=== PATIENT | male | born 1930 | race Caucasian/White ===

== ENCOUNTER 2017-04-09 17:28 | Inpatient (IN) | payer MEDICARE, OTHER ==
[2017-04-09 17:28] VITALS: BMI 25.2
[2017-04-09] MEDS ORDERED: Sodium Chloride 0.9% 1,000 ML IV STA (18:27)
--- NOTE | 2017-04-09 18:47 | ED PDOC ---
HPI: General Adult Time Seen by Provider: 04/09/17 18:04 Chief Complaint (Nursing): Weakness/Neurological Deficit Chief Complaint (Provider): Generalized Weakness and Abnormal Lab Results History Per: Patient, Family History/Exam Limitations: no limitations Onset/Duration Of Symptoms: Hrs Additional Complaint(s): Patient is an 86 y/o male with extensive past medical history, who presents to the ED with family for generalized weakness and abnormal lab results (per family ). Family states that patient is living at home and was about to be admitted to a custodial, when the patient's innersole fitter called today and said that he has high potassium levels from blood-work take days ago. They also state he advised taking the patient to the ED to have blood-work done again, before deciding whether or not to take him to the custodial. Family reports the patient has been eating less than usual and deny any fever, cough, urinary symptoms, vomiting, diarrhea, or chest pain. PCP: Charlene Burgos Past Medical History Reviewed: Historical Data, Nursing Documentation, Vital Signs Vital Signs: Last Vital Signs Temp 98.8 F 04/09/17 17:58 Pulse 60 04/09/17 17:58 Resp 16 04/09/17 17:58 BP 140/58 L 04/09/17 17:58 Pulse Ox 100 04/09/17 19:00 - Medical History PMH: Arthritis, CVA (with R deficits), Dementia, HTN, Hypercholesterolemia, TIA Denies: HIV Other PMH: Peripheral artery disease, prostate enlargement - Surgical History Surgical History: Cholecystectomy Other surgeries: Peripheral arterial revascularization of lower extremity, Prostatectomy - Family History Family History: States: Unknown Family Hx - Living Arrangements Living Arrangements: With Family - Home Medications Home Medications: Ambulatory Orders Medication Instructions Recorded Carvedilol [Coreg] 6.25 mg PO DAILY 04/09/17 Clonazepam [Klonopin] 1 mg PO HS 04/09/17 Clopidogrel [Plavix] 75 mg PO DAILY 04/09/17 Furosemide [Lasix] 40 mg PO DAILY 04/09/17 Valsartan [Diovan] 320 mg PO DAILY 04/09/17 - Allergies Allergies/Adverse Reactions: Allergies Allergy/AdvReac Type Severity Reaction Status Date / Time No Known Allergies Allergy Verified 04/09/17 17:58 Review of Systems ROS Statement: Except As Marked, All Systems Reviewed And Found Negative Constitutional: Positive for: Weakness (progessive). Negative for: Fever, Chills Respiratory: Negative for: Cough, Shortness of Breath Gastrointestinal: Negative for: Nausea, Vomiting, Diarrhea Neurological: Positive for: Change in Speech (intermittently slurred speech) Physical Exam - Reviewed Nursing Documentation Reviewed: Yes Vital Signs Reviewed: Yes - Physical Exam Appears: Positive for: No Acute Distress Head Exam: Positive for: ATRAUMATIC, NORMOCEPHALIC Skin: Positive for: Normal Color, Warm, Dry Eye Exam: Positive for: Normal appearance, EOMI, PERRL, Other (Sclera normal) ENT: Positive for: Other (Mucosa dry) Neck: Positive for: Normal, Painless ROM, Supple Cardiovascular/Chest: Positive for: Regular Rate, Rhythm. Negative for: Murmur Respiratory: Positive for: Normal Breath Sounds. Negative for: Respiratory Distress Gastrointestinal/Abdominal: Positive for: Normal Exam, Soft. Negative for: Tenderness Back: Positive for: Normal Inspection. Negative for: L CVA Tenderness, R CVA Tenderness, Vertebral Tenderness Rectal: Positive for: Normal Exam (brown pasty stool). Negative for: Tenderness Extremity: Positive for: Swelling (Bilateral lower extremity), Other (2 heal ulcers) Neurologic/Psych: Positive for: Alert, Oriented (person, place, and time). Negative for: Motor/Sensory Deficits - Laboratory Results Result Diagrams: 04/09/17 19:04 04/09/17 19:04 - ECG O2 Sat by Pulse Oximetry: 100 (RA) Pulse Ox Interpretation: Normal Medical Decision Making Medical Decision Makin:24 Initial Impression: Generalized weakness, possible abnormal lab results Initial Plan: --EKG --CMP --Dipstick --CBC --Partial Thromboplastin Time --Prothrombin Time --Sodium Chloride 0.9% IV 125 mls/hr --IV Insertion --Glucose, Blood, POC Scribe Attestation: Documented by Annabel Moss, acting as a scribe for Taryn Vidales MD Provider Scribe Attestation: All medical record entries made by the James were at my direction and personally dictated by me. I have reviewed the chart and agree that the record accurately reflects my personal performance of the history, physical exam, medical decision making, and the department course for this patient. I have also personally directed, reviewed, and agree with the discharge instructions and disposition. Disposition - Clinical Impression Clinical Impression: Anemia, Acute renal disease, Hyperkalemia - Patient ED Disposition Is Patient to be Admitted: Transfer of Care Doctor Will See Patient In The: Hospital - Disposition Disposition Time: 21:00 Condition: STABLE Forms: [employer] (Bulgarian) - Pt Status Changed To: Hospital Disposition Of: Inpatient - Admit Certification Admit to Inpatient:: After my assessment, the patient will require hospitalization for at least two midnights. This is because of the severity of symptoms shown, intensity of services needed, and/or the medical risk in this patient being treated as an outpatient. - POA Present On Arrival: None, Pressure Ulcer (stage 1 sacral; bilateral heel eschar)
[2017-04-09 19:29] LABS: BASO % 0.9 % (0.0-2.0); EOS # 0.4 K/uL (0.0-0.7); EOS % 6.9 % (0.0-4.0); HEMOGLOBIN 7.7 g/dL (12.0-18.0); LYMPH # 1.3 K/uL (1.0-4.3); LYMPH % 25.3 % (20.0-40.0); MEAN CELL VOLUME 89.7 fl (80.0-94.0); MEAN CORPUSCULAR HEMOGLOBIN 29.3 pg (27.0-31.0); MEAN CORPUSCULAR HGB CONC 32.6 g/dL (33.0-37.0); MEAN PLATELET VOLUME 9.1 fl (7.2-11.7); MONO # 0.7 K/uL (0.0-0.8); MONO % 12.9 % (0.0-10.0); NEUT # 2.8 K/uL (1.8-7.0); RBC 2.63 Mil/uL (4.40-5.90); RED CELL DISTRIBUTION WIDTH 15.6 % (11.5-14.5); WHITE BLOOD COUNT 5.2 K/uL (4.8-10.8)
[2017-04-09 19:33] LABS: PARTIAL THROMBOPLASTIN TIME 26.3 Seconds (25.6-37.1); PROTHROMBIN TIME 10.8 Seconds (9.8-13.1)
[2017-04-09 19:45] LABS: ALBUMIN 3.9 g/dL (3.5-5.0); CALCIUM 8.9 mg/dL (8.4-10.2)
--- NOTE | 2017-04-10 11:44 | CARD ---
APPROVED REPORT EKG Measurement Heart [id number] <Conclusion> Sinus bradycardia with 1st degree AV block Left ventricular hypertrophy with repolarization abnormality Abnormal ECG
[2017-04-10 14:43] LABS: MEAN CELL VOLUME 88.1 fl (80.0-94.0); RBC 3.01 Mil/uL (4.40-5.90); RED CELL DISTRIBUTION WIDTH 14.7 % (11.5-14.5); WHITE BLOOD COUNT 4.9 K/uL (4.8-10.8)
[2017-04-10 17:04] LABS: CALCIUM 8.4 mg/dL (8.4-10.2)
--- NOTE | 2017-04-10 22:50 | CP.PCM.HP ---
History of Present Illness - History of Present Illness History of Present Illness: CC: Abnormal Laboratory History of Present Illness: An 86 y/o male with extensive past medical history, who presents to the ED with family for generalized weakness and abnormal lab results per the daughter at the bed side. Family states that patient is living at home and was about to be admitted to a senior care, when the patient's bilingual operator called today and said that he has high potassium levels from blood-work taken days ago. They also state he advised taking the patient to the ED to have blood-work done again , before deciding whether or not to take him to the senior care. Family reports the patient has been eating less than usual and deny any fever, cough, urinary symptoms, vomiting, diarrhea, or chest pain. Present on Admission - Present on Admission Any Indicators Present on Admission: No History of DVT/PE: No History of Uncontrolled Diabetes: No Urinary Catheter: No Decubitus Ulcer Present: No Review of Systems - Review of Systems All systems: reviewed and no additional remarkable complaints except Past Patient History - Past Medical History & Family History Past Medical History?: Yes Past Family History: Reviewed and not pertinent - Past Social History Smoking Status: Former Smoker Alcohol: None Drugs: Denies - CARDIAC Hx Cardiac Disorders: Yes Hx Hypercholesterolemia: Yes Hx Hypertension: Yes Other/Comment: peripheral artery disease - PULMONARY Hx Respiratory Disorders: No - NEUROLOGICAL Hx Neurological Disorder: Yes HX Cerebrovascular Accident: Yes (slight right weakness) Hx Dementia: Yes Hx Transient Ischemic Attacks (TIA): Yes - HEENT Hx HEENT Problems: No - RENAL Hx Chronic Kidney Disease: No - ENDOCRINE/METABOLIC Hx Endocrine Disorders: No - HEMATOLOGICAL/ONCOLOGICAL Hx Blood Disorders: No Hx Human Immunodeficiency Virus (HIV): No - INTEGUMENTARY Hx Dermatological Problems: No - MUSCULOSKELETAL/RHEUMATOLOGICAL Hx Musculoskeletal Disorders: Yes Hx Arthritis: Yes Hx Falls: No - GASTROINTESTINAL Hx Gastrointestinal Disorders: No - GENITOURINARY/GYNECOLOGICAL Hx Genitourinary Disorders: Yes Hx Prostate Problems: Yes (enlargement) - PSYCHIATRIC Hx Psychophysiologic Disorder: No Hx Substance Use: No - SURGICAL HISTORY Hx Surgeries: Yes Hx Cholecystectomy: Yes Hx Herniorrhaphy: Yes (hernia repair) Other/Comment: prostatectomy, peripheral arterial revascularization of lower extremities - ANESTHESIA Hx Anesthesia: Yes Hx Anesthesia Reactions: No Hx Malignant Hyperthermia: No Meds Allergies/Adverse Reactions: Allergies Allergy/AdvReac Type Severity Reaction Status Date / Time No Known Allergies Allergy Verified 04/09/17 17:58 Physical Exam - Constitutional Appears: Well - Head Exam Head Exam: ATRAUMATIC, NORMAL INSPECTION, NORMOCEPHALIC - Eye Exam Eye Exam: EOMI, Normal appearance, PERRL Pupil Exam: NORMAL ACCOMODATION, PERRL - ENT Exam ENT Exam: Mucous Membranes Moist, Normal Exam - Neck Exam Neck exam: Positive for: Normal Inspection - Respiratory Exam Respiratory Exam: Clear to Auscultation Bilateral, NORMAL BREATHING PATTERN - Cardiovascular Exam Cardiovascular Exam: REGULAR RHYTHM, +S1, +S2 - GI/Abdominal Exam GI & Abdominal Exam: Normal Bowel Sounds, Soft. absent: Tenderness - Extremities Exam Extremities exam: Positive for: normal inspection - Back Exam Back exam: FULL ROM, NORMAL INSPECTION - Neurological Exam Neurological exam: Alert, CN II-XII Intact, Normal Gait, Oriented x3, Reflexes Normal - Psychiatric Exam Psychiatric exam: Normal Affect, Normal Mood - Skin Skin Exam: Dry, Intact, Normal Color, Warm Results - Vital Signs Recent Vital Signs: Last Vital Signs Temp 98.4 F 04/10/17 19:25 Pulse 60 04/10/17 21:00 Resp 17 04/10/17 19:25 BP 167/58 H 04/10/17 21:00 Pulse Ox 96 04/10/17 19:25 - Labs Result Diagrams: 04/14/17 13:10 04/14/17 13:10 Labs: Laboratory Results - last 24 hr 04/09/17 04/10/17 04/10/17 21:03 13:51 16:14 WBC 4.9 RBC 3.01 L Hgb 9.0 L Hct 26.6 L MCV 88.1 MCH 30.0 MCHC 34.0 RDW 14.7 H Plt Count 213 Sodium 139 Potassium 5.2 H Chloride 111 H Carbon Dioxide 22 Anion Gap 11 BUN 59 H Creatinine 2.8 H Est GFR ( Amer) 26 Est GFR (Non-Af Amer) 22 Random Glucose 92 Calcium 8.4 Blood Type A POSITIVE Antibody Screen Negative Crossmatch See Detail BBK History Checked Patient has bt - EKG Data EKG Interpreted by: Myself EKG shows normal: Sinus rhythm, [place], Intervals, QRS complexes, ST-T waves Rate: Normal - EKG Data EKG comments: LVH with Repolarization. Assessment & Plan (1) Acute pure red cell anemia Assessment and Plan: Most likely 2nd to Blood Loss and Renal Failure Generalized Weakness Anemia Work Up Fecal Occult Transfuse 2 Units of PRBCs Monitor H&H Status: Acute (2) Hyperkalemia Assessment and Plan: IVF Kayexalate Monitor BMP Status: Acute Priority: High (3) Acute renal disease Assessment and Plan: Most Likely Prerenal R/O Post-Renal IVF BMP Status: Acute Priority: High (4) HTN (hypertension) Status: Chronic Priority: Low
[2017-04-11 08:09] LABS: BASO % 0.7 % (0.0-2.0); EOS # 0.4 K/uL (0.0-0.7); EOS % 5.7 % (0.0-4.0); HEMOGLOBIN 9.8 g/dL (12.0-18.0); LYMPH # 1.5 K/uL (1.0-4.3); LYMPH % 25.2 % (20.0-40.0); MEAN CELL VOLUME 87.2 fl (80.0-94.0); MEAN CORPUSCULAR HEMOGLOBIN 30.1 pg (27.0-31.0); MEAN CORPUSCULAR HGB CONC 34.5 g/dL (33.0-37.0); MEAN PLATELET VOLUME 8.4 fl (7.2-11.7); MONO # 0.6 K/uL (0.0-0.8); MONO % 10.4 % (0.0-10.0); NEUT # 3.5 K/uL (1.8-7.0); NRBC % 0.1 % (0.0-0.0); RBC 3.26 Mil/uL (4.40-5.90); RED CELL DISTRIBUTION WIDTH 14.6 % (11.5-14.5); WHITE BLOOD COUNT 6.1 K/uL (4.8-10.8)
[2017-04-11 08:25] LABS: CALCIUM 8.9 mg/dL (8.4-10.2)
--- NOTE | 2017-04-11 13:47 | CP.PCM.PN ---
Subjective - Date & Time of Evaluation Date of Evaluation: 04/11/17 Time of Evaluation: 13:15 Objective - Vital Signs/Intake and Output Vital Signs (last 24 hours): Temp Pulse Resp BP Pulse Ox 97.6 F 58 L 18 165/66 H 97 04/11/17 13:04 04/11/17 13:04 04/11/17 13:04 04/11/17 13:04 04/11/17 13:04 - Medications Medications: Current Medications Carvedilol (Coreg) 6.25 mg PO DAILY [facility] Last Admin: 04/11/17 09:49 Dose: 6.25 mg Clonazepam (Klonopin) 1 mg PO HS [facility] Last Admin: 04/10/17 21:56 Dose: 1 mg Clopidogrel Bisulfate (Plavix) 75 mg PO DAILY [facility] Last Admin: 04/11/17 09:48 Dose: 75 mg Furosemide (Lasix) 40 mg PO DAILY [facility] Last Admin: 04/11/17 09:48 Dose: 40 mg Valsartan (Diovan) 320 mg PO DAILY [facility] Last Admin: 04/11/17 09:49 Dose: 320 mg - Labs Labs: 04/11/17 06:30 04/11/17 06:30 PT 10.8 Seconds (9.8-13.1) 04/09/17 19:04 INR 1.0 (0.9-1.2) 04/09/17 19:04 APTT 26.3 Seconds (25.6-37.1) 04/09/17 19:04 Assessment and Plan (1) Acute renal failure (ARF) Assessment & Plan: Most likely 2nd to Blood Loss and Renal Failure Generalized Weakness Anemia Work Up Fecal Occult Transfuse 2 Units of PRBCs Monitor H&H Status: Acute (2) Hyperkalemia Assessment and Plan: IVF Kayexalate Monitor BMP Status: Acute Priority: High (3) Acute renal disease Assessment and Plan: Most Likely Prerenal R/O Post-Renal IVF BMP Status: Acute Priority: High (4) HTN (hypertension) Status: Acute
[2017-04-11 15:02] LABS: IRON 39 ug/dL (49-181)
[2017-04-11 15:12] LABS: TOTAL IRON BINDING CAPACITY 278 ug/dL (250-450)
[2017-04-11 15:13] LABS: % IRON SATURATION 14 % (20-55)
--- NOTE | 2017-04-11 23:37 | CP.PCM.CON ---
History of Present Illness - History of Present Illness History of Present Illness: 86 yo male with multiple medical problems admitted with weakness, renal failure , and anemia.Patient has been hydrated and Hgb has declined. Stool for occult blood is positive. Review of Systems - Review of Systems Systems not reviewed;Unavailable: Altered Mental Status Past Patient History - Past Medical History & Family History Past Medical History?: Yes - Past Social History Smoking Status: Former Smoker - CARDIAC Hx Cardiac Disorders: Yes Hx Hypercholesterolemia: Yes Hx Hypertension: Yes Other/Comment: peripheral artery disease - PULMONARY Hx Respiratory Disorders: No - NEUROLOGICAL Hx Neurological Disorder: Yes HX Cerebrovascular Accident: Yes (slight right weakness) Hx Dementia: Yes Hx Transient Ischemic Attacks (TIA): Yes - HEENT Hx HEENT Problems: No - RENAL Hx Chronic Kidney Disease: No - ENDOCRINE/METABOLIC Hx Endocrine Disorders: No - HEMATOLOGICAL/ONCOLOGICAL Hx Blood Disorders: No Hx Human Immunodeficiency Virus (HIV): No - INTEGUMENTARY Hx Dermatological Problems: No - MUSCULOSKELETAL/RHEUMATOLOGICAL Hx Musculoskeletal Disorders: Yes Hx Arthritis: Yes Hx Falls: No - GASTROINTESTINAL Hx Gastrointestinal Disorders: No - GENITOURINARY/GYNECOLOGICAL Hx Genitourinary Disorders: Yes Hx Prostate Problems: Yes (enlargement) - PSYCHIATRIC Hx Psychophysiologic Disorder: No Hx Substance Use: No - SURGICAL HISTORY Hx Surgeries: Yes Hx Cholecystectomy: Yes Hx Herniorrhaphy: Yes (hernia repair) Other/Comment: prostatectomy, peripheral arterial revascularization of lower extremities - ANESTHESIA Hx Anesthesia: Yes Hx Anesthesia Reactions: No Hx Malignant Hyperthermia: No Meds Allergies/Adverse Reactions: Allergies Allergy/AdvReac Type Severity Reaction Status Date / Time No Known Allergies Allergy Verified 04/09/17 17:58 - Medications Medications: Current Medications Carvedilol (Coreg) 6.25 mg PO DAILY [facility] Last Admin: 04/11/17 09:49 Dose: 6.25 mg Clonazepam (Klonopin) 1 mg PO HS [facility] Last Admin: 04/11/17 21:20 Dose: 1 mg Furosemide (Lasix) 40 mg PO DAILY [facility] Last Admin: 04/11/17 09:48 Dose: 40 mg Pantoprazole Sodium (Protonix Inj) 40 mg IVP DAILY [facility] Valsartan (Diovan) 320 mg PO DAILY [facility] Last Admin: 04/11/17 09:49 Dose: 320 mg Physical Exam - Head Exam Head Exam: ATRAUMATIC - Eye Exam Eye Exam: Normal appearance Pupil Exam: PERRL - ENT Exam ENT Exam: Normal Exam - Neck Exam Neck exam: Positive for: Normal Inspection - Respiratory Exam Respiratory Exam: Clear to Auscultation Bilateral - Cardiovascular Exam Cardiovascular Exam: +S1, +S2 - GI/Abdominal Exam GI & Abdominal Exam: Normal Bowel Sounds, Soft. absent: Tenderness Results - Vital Signs Recent Vital Signs: Last Vital Signs Temp 97.6 F 04/11/17 20:19 Pulse 57 L 04/11/17 20:19 Resp 14 04/11/17 20:19 BP 144/54 L 04/11/17 20:19 Pulse Ox 97 04/11/17 20:19 - Labs Result Diagrams: 04/11/17 06:30 04/11/17 06:30 Labs: Laboratory Results - last 24 hr 04/11/17 04/11/17 04/11/17 06:30 06:30 14:15 WBC 6.1 RBC 3.26 L Hgb 9.8 L Hct 28.5 L MCV 87.2 MCH 30.1 MCHC 34.5 RDW 14.6 H Plt Count 253 MPV 8.4 Neut % (Auto) 58.0 Lymph % (Auto) 25.2 [place] % (Auto) 10.4 H Eos % (Auto) 5.7 H Baso % (Auto) 0.7 Neut # 3.5 Lymph # 1.5 [place] # 0.6 Eos # 0.4 Baso # 0.0 Retic Count 1.1 Sodium 141 Potassium 4.5 Chloride 110 H Carbon Dioxide 23 Anion Gap 13 BUN 49 H Creatinine 2.5 H Est GFR ( Amer) 30 Est GFR (Non-Af Amer) 25 Random Glucose 90 Calcium 8.9 Iron TIBC % Saturation Ferritin Vitamin B12 04/11/17 04/11/17 14:15 14:15 WBC RBC Hgb Hct MCV MCH MCHC RDW Plt Count MPV Neut % (Auto) Lymph % (Auto) [place] % (Auto) Eos % (Auto) Baso % (Auto) Neut # Lymph # [place] # Eos # Baso # Retic Count Sodium Potassium Chloride Carbon Dioxide Anion Gap BUN Creatinine Est GFR ( Amer) Est GFR (Non-Af Amer) Random Glucose Calcium Iron 39 L TIBC 278 % Saturation 14 L Ferritin 116.0 Vitamin B12 534 Assessment & Plan (1) Anemia Assessment and Plan: No gross rectal bleedding observed and anemia could be from ARF. Due to multiplicity of medical issues patient high risk for endocopy and anasthesia. Will follow with you clinically. Status: Acute
[2017-04-12 17:00] LABS: BASO % 0.4 % (0.0-2.0); EOS # 0.3 K/uL (0.0-0.7); EOS % 4.7 % (0.0-4.0); HEMOGLOBIN 10.5 g/dL (12.0-18.0); LYMPH # 1.2 K/uL (1.0-4.3); LYMPH % 22.2 % (20.0-40.0); MEAN CELL VOLUME 88.9 fl (80.0-94.0); MEAN CORPUSCULAR HEMOGLOBIN 29.8 pg (27.0-31.0); MEAN CORPUSCULAR HGB CONC 33.5 g/dL (33.0-37.0); MEAN PLATELET VOLUME 8.6 fl (7.2-11.7); MONO # 0.7 K/uL (0.0-0.8); NEUT # 3.3 K/uL (1.8-7.0); NEUT % 60.7 % (50.0-75.0); NRBC % 0.1 % (0.0-0.0); RBC 3.52 Mil/uL (4.40-5.90); RED CELL DISTRIBUTION WIDTH 14.9 % (11.5-14.5); WHITE BLOOD COUNT 5.5 K/uL (4.8-10.8)
[2017-04-12 17:38] LABS: FOLATE > 20.0 ng/mL
--- NOTE | 2017-04-13 01:25 | CP.PCM.PN ---
Subjective - Date & Time of Evaluation Date of Evaluation: 04/12/17 Time of Evaluation: 16:30 Objective - Vital Signs/Intake and Output Vital Signs (last 24 hours): Temp Pulse Resp BP Pulse Ox 97.6 F 59 L 18 136/67 97 04/13/17 00:12 04/13/17 00:12 04/13/17 00:12 04/13/17 00:12 04/13/17 00:12 - Medications Medications: Current Medications Carvedilol (Coreg) 6.25 mg PO DAILY [facility] Last Admin: 04/12/17 09:22 Dose: 6.25 mg Clonazepam (Klonopin) 1 mg PO HS [facility] Last Admin: 04/12/17 22:38 Dose: 1 mg Furosemide (Lasix) 40 mg PO DAILY [facility] Last Admin: 04/12/17 09:23 Dose: 40 mg Pantoprazole Sodium (Protonix Inj) 40 mg IVP DAILY [facility] Last Admin: 04/12/17 09:22 Dose: 40 mg Valsartan (Diovan) 320 mg PO DAILY [facility] Last Admin: 04/12/17 09:23 Dose: 320 mg - Labs Labs: 04/12/17 16:30 04/12/17 16:30 PT 10.8 Seconds (9.8-13.1) 04/09/17 19:04 INR 1.0 (0.9-1.2) 04/09/17 19:04 APTT 26.3 Seconds (25.6-37.1) 04/09/17 19:04 Assessment and Plan (1) Acute renal failure (ARF) Assessment & Plan: Most likely 2nd to Blood Loss and Renal Failure Generalized Weakness Anemia Work Up Fecal Occult Transfuse 2 Units of PRBCs Monitor H&H Status: Acute (2) Hyperkalemia Assessment and Plan: IVF Kayexalate Monitor BMP Status: Acute Priority: High (3) Acute renal disease Assessment and Plan: Most Likely Prerenal R/O Post-Renal IVF BMP Status: Acute Priority: High (4) HTN (hypertension) Status: Acute
--- NOTE | 2017-04-13 10:20 | CP.PCM.PN ---
Subjective - Date & Time of Evaluation Date of Evaluation: 04/13/17 Time of Evaluation: 09:10 - Subjective Subjective: No complaints. Eating well. Objective - Vital Signs/Intake and Output Vital Signs (last 24 hours): Temp Pulse Resp BP Pulse Ox 97.4 F L 60 18 129/57 L 98 04/13/17 07:58 04/13/17 09:00 04/13/17 07:58 04/13/17 08:34 04/13/17 07:58 - Medications Medications: Current Medications Carvedilol (Coreg) 6.25 mg PO DAILY [facility] Last Admin: 04/13/17 08:33 Dose: 6.25 mg Clonazepam (Klonopin) 1 mg PO HS [facility] Last Admin: 04/12/17 22:38 Dose: 1 mg Furosemide (Lasix) 40 mg PO DAILY [facility] Last Admin: 04/13/17 08:34 Dose: 40 mg Pantoprazole Sodium (Protonix Inj) 40 mg IVP DAILY [facility] Last Admin: 04/13/17 08:34 Dose: 40 mg Valsartan (Diovan) 320 mg PO DAILY [facility] Last Admin: 04/13/17 08:33 Dose: 320 mg - Labs Labs: 04/12/17 16:30 04/12/17 16:30 PT 10.8 Seconds (9.8-13.1) 04/09/17 19:04 INR 1.0 (0.9-1.2) 04/09/17 19:04 APTT 26.3 Seconds (25.6-37.1) 04/09/17 19:04 - Head Exam Head Exam: ATRAUMATIC - Eye Exam Eye Exam: Normal appearance - ENT Exam ENT Exam: Normal Exam - Respiratory Exam Respiratory Exam: Clear to Ausculation Bilateral - Cardiovascular Exam Cardiovascular Exam: REGULAR RHYTHM, +S1, +S2 - GI/Abdominal Exam GI & Abdominal Exam: Soft, Normal Bowel Sounds. absent: Tenderness Assessment and Plan (1) Anemia Assessment & Plan: Hgb increased from yesterday. No overt bleeding. No need for endoscopy at this point. Status: Acute
--- NOTE | 2017-04-14 00:43 | CP.PCM.PN ---
Subjective - Date & Time of Evaluation Date of Evaluation: 04/13/17 Time of Evaluation: 22:45 Objective - Vital Signs/Intake and Output Vital Signs (last 24 hours): Temp Pulse Resp BP Pulse Ox 97.3 F L 64 18 116/58 L 95 04/14/17 00:32 04/14/17 00:32 04/14/17 00:32 04/14/17 00:32 04/14/17 00:32 Intake and Output: 04/13/17 04/14/17 18:59 06:59 Intake Total 1200 Output Total 950 Balance 250 - Medications Medications: Current Medications Acetaminophen (Tylenol 325mg Tab) 650 mg PO Q6 PRN PRN Reason: Headache Last Admin: 04/13/17 11:30 Dose: 650 mg Carvedilol (Coreg) 6.25 mg PO DAILY [facility] Last Admin: 04/13/17 08:33 Dose: 6.25 mg Clonazepam (Klonopin) 1 mg PO [facility] Last Admin: 04/13/17 21:53 Dose: 1 mg Furosemide (Lasix) 40 mg PO DAILY [facility] Last Admin: 04/13/17 08:34 Dose: 40 mg Pantoprazole Sodium (Protonix Inj) 40 mg IVP DAILY [facility] Last Admin: 04/13/17 08:34 Dose: 40 mg Valsartan (Diovan) 320 mg PO DAILY [facility] Last Admin: 04/13/17 08:33 Dose: 320 mg - Labs Labs: 04/12/17 16:30 04/12/17 16:30 PT 10.8 Seconds (9.8-13.1) 04/09/17 19:04 INR 1.0 (0.9-1.2) 04/09/17 19:04 APTT 26.3 Seconds (25.6-37.1) 04/09/17 19:04 Assessment and Plan (1) Acute renal failure (ARF) Assessment & Plan: Most likely 2nd to Blood Loss and Renal Failure Generalized Weakness Anemia Work Up Fecal Occult Transfuse 2 Units of PRBCs Monitor H&H Status: Acute (2) Hyperkalemia Assessment and Plan: IVF Kayexalate Monitor BMP Status: Acute Priority: High (3) Acute renal disease Assessment and Plan: Most Likely Prerenal R/O Post-Renal IVF BMP Status: Acute Priority: High (4) HTN (hypertension) Status: Acute
[2017-04-14 13:50] LABS: HEMOGLOBIN 11.5 g/dL (12.0-18.0); MEAN CELL VOLUME 89.4 fl (80.0-94.0); MEAN CORPUSCULAR HEMOGLOBIN 29.8 pg (27.0-31.0); MEAN CORPUSCULAR HGB CONC 33.3 g/dL (33.0-37.0); RBC 3.85 Mil/uL (4.40-5.90); RED CELL DISTRIBUTION WIDTH 15.1 % (11.5-14.5); WHITE BLOOD COUNT 6.5 K/uL (4.8-10.8)
[2017-04-14 13:59] LABS: CALCIUM 8.9 mg/dL (8.4-10.2)
--- NOTE | 2017-04-14 22:29 | CP.PCM.PN ---
Subjective - Date & Time of Evaluation Time of Evaluation: 20:10 Objective - Vital Signs/Intake and Output Vital Signs (last 24 hours): Temp Pulse Resp BP Pulse Ox 97.5 F L 56 L 17 112/70 99 04/14/17 19:43 04/14/17 20:09 04/14/17 19:43 04/14/17 19:43 04/14/17 19:43 Intake and Output: 04/14/17 04/15/17 18:59 06:59 Intake Total 1050 Output Total 850 Balance 200 - Medications Medications: Current Medications Acetaminophen (Tylenol 325mg Tab) 650 mg PO Q6 PRN PRN Reason: Headache Last Admin: 04/13/17 11:30 Dose: 650 mg Carvedilol (Coreg) 6.25 mg PO DAILY [facility] Last Admin: 04/14/17 09:07 Dose: 6.25 mg Clonazepam (Klonopin) 1 mg PO HS [facility] Last Admin: 04/13/17 21:53 Dose: 1 mg Furosemide (Lasix) 40 mg PO DAILY [facility] Last Admin: 04/14/17 09:07 Dose: 40 mg Pantoprazole Sodium (Protonix Inj) 40 mg IVP DAILY [facility] Last Admin: 04/14/17 09:07 Dose: 40 mg Valsartan (Diovan) 320 mg PO DAILY [facility] Last Admin: 04/14/17 09:07 Dose: 320 mg - Labs Labs: 04/14/17 13:10 04/14/17 13:10 PT 10.8 Seconds (9.8-13.1) 04/09/17 19:04 INR 1.0 (0.9-1.2) 04/09/17 19:04 APTT 26.3 Seconds (25.6-37.1) 04/09/17 19:04 Assessment and Plan (1) Acute renal failure (ARF) Assessment & Plan: Most likely 2nd to Blood Loss and Renal Failure Generalized Weakness Anemia Work Up Fecal Occult Transfuse 2 Units of PRBCs Monitor H&H Status: Acute (2) Hyperkalemia Assessment and Plan: IVF Kayexalate Monitor BMP Status: Acute Priority: High (3) Acute renal disease Assessment and Plan: Most Likely Prerenal R/O Post-Renal IVF BMP Status: Acute Priority: High (4) HTN (hypertension) Status: Acute
[2017-04-15 05:54] LABS: CALCIUM 8.9 mg/dL (8.4-10.2)
[2017-04-15 15:42] VITALS: BP 108/58; PULSE 55; RESP 16; TEMP 97.7; O2SAT 98
--- NOTE | 2017-04-16 18:08 | CP.PCM.DIS ---
Provider - Provider Date of Admission: 04/09/17 21:24 Attending physician: Florencio Sethi MD Time Spent in preparation of Discharge (in minutes): 25 Diagnosis - Discharge Diagnosis (1) Acute renal failure (ARF) Status: Acute Hospital Course - Lab Results Lab Results: Most Recent Lab Values WBC 6.5 K/uL (4.8-10.8) 04/14/17 13:10 RBC 3.85 Mil/uL (4.40-5.90) L 04/14/17 13:10 Hgb 11.5 g/dL (12.0-18.0) L 04/14/17 13:10 Hct 34.4 % (35.0-51.0) L 04/14/17 13:10 MCV 89.4 fl (80.0-94.0) 04/14/17 13:10 MCH 29.8 pg (27.0-31.0) 04/14/17 13:10 MCHC 33.3 g/dL (33.0-37.0) 04/14/17 13:10 RDW 15.1 % (11.5-14.5) H 04/14/17 13:10 Plt Count 300 K/uL (130-400) 04/14/17 13:10 MPV 8.6 fl (7.2-11.7) 04/12/17 16:30 Neut % (Auto) 60.7 % (50.0-75.0) 04/12/17 16:30 Lymph % (Auto) 22.2 % (20.0-40.0) 04/12/17 16:30 [place] % (Auto) 12.0 % (0.0-10.0) H 04/12/17 16:30 Eos % (Auto) 4.7 % (0.0-4.0) H 04/12/17 16:30 Baso % (Auto) 0.4 % (0.0-2.0) 04/12/17 16:30 Neut # 3.3 K/uL (1.8-7.0) 04/12/17 16:30 Lymph # 1.2 K/uL (1.0-4.3) 04/12/17 16:30 [place] # 0.7 K/uL (0.0-0.8) 04/12/17 16:30 Eos # 0.3 K/uL (0.0-0.7) 04/12/17 16:30 Baso # 0.0 K/uL (0.0-0.2) 04/12/17 16:30 Retic Count 1.1 % (0.5-1.5) 04/11/17 14:15 PT 10.8 Seconds (9.8-13.1) 04/09/17 19:04 INR 1.0 (0.9-1.2) 04/09/17 19:04 APTT 26.3 Seconds (25.6-37.1) 04/09/17 19:04 Sodium 141 mmol/l (132-148) 04/15/17 04:50 Potassium 4.4 MMOL/L (3.6-5.0) 04/15/17 04:50 Chloride 106 mmol/L (98-107) 04/15/17 04:50 Carbon Dioxide 22 mmol/L (22-30) 04/15/17 04:50 Anion Gap 17 (10-20) 04/15/17 04:50 BUN 62 mg/dl (9-20) H 04/15/17 04:50 Creatinine 2.4 mg/dl (0.8-1.5) H 04/15/17 04:50 Est GFR ( Amer) 31 04/15/17 04:50 Est GFR (Non-Af Amer) 26 04/15/17 04:50 POC Glucose (mg/dL) 120 mg/dL (65-110) H 04/09/17 19:01 Random Glucose 94 mg/dL (75-110) 04/15/17 04:50 Calcium 8.9 mg/dL (8.4-10.2) 04/15/17 04:50 Iron 39 ug/dL (49-181) L 04/11/17 14:15 TIBC 278 ug/dL (250-450) 04/11/17 14:15 % Saturation 14 % (20-55) L 04/11/17 14:15 Ferritin 116.0 ng/Ml (17.9-464) 04/11/17 14:15 Total Bilirubin 0.7 mg/dl (0.2-1.3) 04/09/17 19:04 AST 37 U/L (17-59) 04/09/17 19:04 ALT 33 U/L (21-72) 04/09/17 19:04 Alkaline Phosphatase 70 U/L (38-126) 04/09/17 19:04 Total Protein 7.7 G/DL (6.3-8.2) 04/09/17 19:04 Albumin 3.9 g/dL (3.5-5.0) 04/09/17 19:04 Globulin 3.8 gm/dL (2.2-3.9) 04/09/17 19:04 Albumin/Globulin Ratio 1.0 (1.0-2.1) 04/09/17 19:04 Vitamin B12 534 pg/mL (239-931) 04/11/17 14:15 Folate > 20.0 ng/mL 04/11/17 14:15 Stool Occult Blood Positive (NEGATIVE) H 04/09/17 22:20 Blood Type A POSITIVE 04/09/17 21:03 Antibody Screen Negative 04/09/17 21:03 Crossmatch See Detail 04/09/17 21:03 BBK History Checked Patient has bt 04/09/17 21:03 Discharge Exam - Head Exam Head Exam: ATRAUMATIC, NORMAL INSPECTION, NORMOCEPHALIC Discharge Plan - Follow Up Plan Condition: STABLE Disposition: TRANSF TO SNF Instructions: Hyperkalemia (DC), Anemia (DC), Acute Kidney Injury (DC), Hypertension (DC), Hypertension (GEN)
== END 2017-04-15 16:50 | DRG 683 ==
LOC: H.ER 17:28 → H.ERHOLD 21:24 → H.TEL 23:33
PROVIDERS: ADMIT Internal Medicine; ATTEND Internal Medicine
PROC: 30233N1 Transfusion of Nonautologous Red Blood Cells into Peripheral Vein, Percutaneous Approach (ICD-10-PCS; principal; 2017-04-10)
DX: N17.9 Acute kidney failure, unspecified (principal); D62 Acute posthemorrhagic anemia; L89.151 Pressure ulcer of sacral region, stage 1; E87.5 Hyperkalemia; F03.90 Unspecified dementia, unspecified severity, without behavioral disturbance, psychotic disturbance, mood disturbance, and anxiety; R53.1 Weakness; I10 Essential (primary) hypertension; Z87.891 Personal history of nicotine dependence; Z86.73 Personal history of transient ischemic attack (TIA), and cerebral infarction without residual deficits; E78.00 Pure hypercholesterolemia, unspecified; I73.9 Peripheral vascular disease, unspecified; N40.0 Benign prostatic hyperplasia without lower urinary tract symptoms; R19.5 Other fecal abnormalities

== ENCOUNTER 2017-07-13 10:14 | Inpatient (IN) | payer MEDICARE, OTHER ==
[2017-07-13 10:14] VITALS: BMI 25.2
[2017-07-13 11:09] LABS: VENOUS BLOOD GAS BASE EXCESS -6.6 mmol/L (0.0-2.0); VENOUS BLOOD GAS PCO2 38 mmHg (40-60); VENOUS BLOOD GAS PO2 15 mm/Hg (30-55); VENOUS BLOOD PH 7.31 (7.32-7.43)
[2017-07-13 11:23] LABS: BASO % 0.3 % (0.0-2.0); EOS % 0.4 % (0.0-4.0); HEMOGLOBIN 7.2 g/dL (12.0-18.0); LYMPH # 1.3 K/uL (1.0-4.3); LYMPH % 9.5 % (20.0-40.0); MEAN CELL VOLUME 89.7 fl (80.0-94.0); MEAN CORPUSCULAR HEMOGLOBIN 29.9 pg (27.0-31.0); MEAN CORPUSCULAR HGB CONC 33.3 g/dL (33.0-37.0); MEAN PLATELET VOLUME 8.8 fl (7.2-11.7); MONO # 0.5 K/uL (0.0-0.8); NEUT # 11.5 K/uL (1.8-7.0); NEUT % 85.8 % (50.0-75.0); NRBC % 0.1 % (0.0-0.0); PLATELET COUNT 277 K/uL (130-400); RBC 2.42 Mil/uL (4.40-5.90); RED CELL DISTRIBUTION WIDTH 15.2 % (11.5-14.5); WHITE BLOOD COUNT 13.3 K/uL (4.8-10.8)
[2017-07-13] MEDS ORDERED: Sodium Chloride 0.9% 1,000 ML IV ONE (11:32)
--- NOTE | 2017-07-13 11:36 | ED PDOC ---
HPI:Nausea, Vomiting, Diarrhea Time Seen by Provider: 07/13/17 10:24 Chief Complaint (Nursing): GI Problem Chief Complaint (Provider): GI Problem History Per: EMS History/Exam Limitations: clinical condition (dementia) Onset/Duration Of Symptoms: Days (x1) Current Symptoms Are (Timing): Still Present Additional Complaint(s): 87 year old male with medical history of dementia, anemia and CRI, [facility] an evaluation of gross amount of dark and bloody vomiting ongoing since this morning. long-term also reported patient had diarrhea with black stools. Unable to obtain further medical complaints as patient is at baseline dementia. PMD: Renee Izaguirre MD Past Medical History Reviewed: Historical Data, Nursing Documentation, Vital Signs Vital Signs: Last Vital Signs Temp 96.9 F L 07/13/17 11:25 Pulse 90 07/13/17 11:16 Resp 19 07/13/17 11:16 BP 106/47 L 07/13/17 11:16 Pulse Ox 100 07/13/17 11:16 - Medical History PMH: Anemia, Arthritis, CVA (with R deficits), Dementia, HTN, Hypercholesterolemia, TIA Denies: HIV, Chronic Kidney Disease Other PMH: chronic renal insufficiency - Surgical History Surgical History: Cholecystectomy - Family History Family History: States: Unknown Family Hx - Living Arrangements Living Arrangements: [facility] - Social History Current smoker - smoking cessation education provided: No Alcohol: None Drugs: Denies - Home Medications Home Medications: Ambulatory Orders Medication Instructions Recorded Carvedilol [Coreg] 6.25 mg PO DAILY 04/09/17 Clopidogrel [Plavix] 75 mg PO DAILY 04/09/17 Furosemide [Lasix] 40 mg PO DAILY 04/09/17 Acetaminophen [Tylenol 325mg tab] 650 mg PO Q4 PRN 07/13/17 Acetaminophen [Tylenol 325mg tab] 650 mg PO Q4 PRN 07/13/17 Collagenase [Santyl] 1 appl TOP BID 07/13/17 Mirtazapine [Remeron] 15 mg PO HS 07/13/17 Tamsulosin [Flomax] 0.4 mg PO DAILY 07/13/17 traMADol [Ultram] 25 mg PO Q12 07/13/17 - Allergies Allergies/Adverse Reactions: Allergies Allergy/AdvReac Type Severity Reaction Status Date / Time No Known Allergies Allergy Verified 07/13/17 10:16 Review of Systems Review Of Systems: ROS cannot be obtained secondary to pt's inabilty to answer questions. (dementia) Physical Exam - Reviewed Nursing Documentation Reviewed: Yes Vital Signs Reviewed: Yes - Physical Exam Appears: Positive for: Non-toxic, Uncomfortable Head Exam: Positive for: ATRAUMATIC, NORMAL INSPECTION, NORMOCEPHALIC Skin: Positive for: Normal Color, Warm, Dry. Negative for: Diaphoresis, Pallor , Rash, Jaundice, Mottled, Cyanosis Eye Exam: Positive for: Normal appearance, EOMI, PERRL. Negative for: Periorbital swelling, Periorbital tenderness, Conjunctival injection, Scleral icterus ENT: Positive for: Other (coffee ground emesis in oropharynx) Neck: Positive for: Normal, Painless ROM, Supple Cardiovascular/Chest: Positive for: Regular Rate, Rhythm, Chest Non Tender. Negative for: Edema, Gallop, Murmur, Bradycardia, Tachycardia Respiratory: Positive for: Normal Breath Sounds. Negative for: Decreased Breath Sounds, Accessory Muscle Use, Crackles, Rales, Rhonchi, Stridor, Wheezing , Respiratory Distress Pulses-Post. Tibialis (L): 2+ Pulses-Post. Tibialis (R): 2+ Pulses-Radial (L): 2+ Pulses-Radial (R): 2+ Gastrointestinal/Abdominal: Positive for: Normal Exam, Bowel Sounds (present), Soft. Negative for: Tenderness, Distended Back: Positive for: Normal Inspection. Negative for: L CVA Tenderness, R CVA Tenderness Rectal: Positive for: Stool Is Heme: (positive), Black Stool Extremity: Positive for: Normal ROM, Swelling, Other (stage 2 bl heels ulcers approx 2 cm). Negative for: Tenderness, Pedal Edema, Calf Tenderness, Deformity Neurologic/Psych: Positive for: Alert, airline reservation agent II-XII, Mood/Affect (anxious). Negative for: Oriented (person only), Motor/Sensory Deficits - Laboratory Results Result Diagrams: 07/13/17 11:02 07/13/17 11:02 - ECG O2 Sat by Pulse Oximetry: 100 (RA) Pulse Ox Interpretation: Normal - Radiology X-Ray: Interpreted by Me X-Ray Interpretation: No Acute Disease - Progress ED Course And Treament: pt has no fever, no signs of sepsis other than elevated wbc, no fever, pt received aggressive iv fluids 30cc per kg fluid bolus on protonix bolus and gtt , transfused 2 units, ct scan with non specific findings no signs of infection. will hydrate and admit elevated lactate likely due to hypovolemic shock. Re-evaluation Time: 12:00 Condition: Improved - Critical Care Total Time (In Min): 30 Medical Decision Making Medical Decision Making: Initial Impression: Hematemesis R/O Pneumonia Initial Plan: * Type and screen * VBG * EKG * Amylase * CMP * Lact acid, plasma * Lipase * Troponin I * CBC * CXR * Protonix inj 80mg IVP * Urine culture * UA Time: 1100 --EKG: NSR at 86 BMP. T-wave inversion in leads II, III, AVF and V6. No ST changes. --Provider reviewed previous chart. Abnormal EKG from 04/09/17 noted without changes when compared to EKG performed today. Time: 1130 --Stool: positive guaiac. --Discussed case with Dr. Sethi, who will evaluate patient at bedside. Time: 1139 --CXR FINDINGS: LUNGS: The lungs are well inflated and clear. There is linear scarring in the left lower lobe. PLEURA: No pneumothorax or pleural fluid seen. CARDIOVASCULAR: Normal. OSSEOUS STRUCTURES: No significant abnormalities. VISUALIZED UPPER ABDOMEN: Normal. OTHER FINDINGS: None. IMPRESSION: No active pulmonary disease. Time: 1148 --Patient will be transferred for ICU admission by Dr. Sethi. --Case discussed with copier repair technician. --Discussed case with Dr. Muhammad, GI. --CT ABD/pelvis ordered for diffuse abdominal pain. Rule out GI bleed. Time: 1401 --CT ABD/pelvis FINDINGS: LOWER THORAX: The right lung base is clear. There is trace left pleural effusion, left pleural calcification, left lower lobe scarring and mild bronchiectasis in the left lower lobe with coarse calcifications likely a sequela of remote infection. LIVER: Normal in size. No gross lesion or ductal dilatation. GALLBLADDER AND BILE DUCTS: Surgically absent. PANCREAS: Diffuse atrophy. No gross lesion or ductal dilatation. SPLEEN: Normal in size. ADRENALS: No discrete nodule. KIDNEYS AND URETERS: There is bilateral renal cortical atrophy. No hydronephrosis or nephrolithiasis. Nonspecific perinephric fat stranding. Tiny high attenuation area in the lower pole of the right kidney may represent small hemorrhagic cyst. VASCULATURE: Atherosclerotic calcifications. No aortic aneurysm. BOWEL: The small bowel loops are normal in caliber. There is large amount of stool in the colon. No bowel dilatation or obstruction. Sigmoid diverticulosis without CT evidence for acute diverticulitis. There is apparent short segment narrowing at the rectosigmoid junction APPENDIX: Normal appendix. PERITONEUM: No free fluid. No free air. LYMPH NODES: No enlarged lymph nodes. BLADDER: Unremarkable. REPRODUCTIVE: Unremarkable. BONES: No acute fracture. OTHER FINDINGS: None. IMPRESSION: 1. Constipation. No evidence of bowel obstruction. 2. Evaluation of the bowel is limited in the absence of oral contrast. Allowing for this, short segment narrowing at the rectosigmoid junction could be related to underdistention however annular stricture/neoplasm cannot be entirely excluded. Please correlate with sigmoidoscopy as clinically indicated. Scribe Attestation: Documented by Anamaria Oneal, acting as a scribe for Ezequiel Lucas MD. Provider Scribe Attestation: All medical record entries made by the Scribe were at my direction and personally dictated by me. I have reviewed the chart and agree that the record accurately reflects my personal performance of the history, physical exam, medical decision making, and the department course for this patient. I have also personally directed, reviewed, and agree with the discharge instructions and disposition. Disposition - Clinical Impression Clinical Impression: Hypovolemic shock, Upper GI bleed - Patient ED Disposition Is Patient to be Admitted: Yes Counseled Patient/Family Regarding: Studies Performed, Diagnosis, Need For Followup - Disposition Disposition Time: 12:00 Condition: CRITICAL - Pt Status Changed To: Hospital Disposition Of: Inpatient - Admit Certification Admit to Inpatient:: After my assessment, the patient will require hospitalization for at least two midnights. This is because of the severity of symptoms shown, intensity of services needed, and/or the medical risk in this patient being treated as an outpatient. - POA Present On Arrival: None, Pressure Ulcer (bl heel ulcers)
--- NOTE | 2017-07-13 11:37 | CARD ---
APPROVED REPORT EKG Measurement Heart [id number] CT [id number] <Conclusion> Sinus rhythm with 1st degree AV block Left ventricular hypertrophy with repolarization abnormality Abnormal ECG
--- NOTE | 2017-07-13 11:41 | RAD ---
PROCEDURE: CHEST RADIOGRAPH, 1 VIEW HISTORY: Chest pain COMPARISON: 02/13/2014. FINDINGS: LUNGS: The lungs are well inflated and clear. There is linear scarring in the left lower lobe. PLEURA: No pneumothorax or pleural fluid seen. CARDIOVASCULAR: Normal. OSSEOUS STRUCTURES: No significant abnormalities. VISUALIZED UPPER ABDOMEN: Normal. OTHER FINDINGS: None. IMPRESSION: No active pulmonary disease.
[2017-07-13 11:59] LABS: ALB/GLOB RATIO 0.9 (1.0-2.1); ALBUMIN 3.1 g/dL (3.5-5.0); CALCIUM 8.1 mg/dL (8.4-10.2)
[2017-07-13] MEDS: Pantoprazole 40 MG in Sodium Chloride 0.9% 100 ML IVPB SCH ×2 (12:03→18:30)
[2017-07-13 12:04] LABS: BANDS 5 % (0-2); LYMPHOCYTE 9 % (20-50); MONOCYTE 4 % (0-10); NEUTROPHIL 82 % (42-75); PLATELET ESTIMATE NORMAL (NORMAL); TOTAL CELLS COUNTED 100
[2017-07-13 12:05] LABS: ANISOCYTOSIS SLIGHT
[2017-07-13 12:06] LABS: BURR CELLS SLIGHT; HYPOCHROMIC MODERATE; LARGE PLATELETS PRESENT; OVALOCYTES SLIGHT; TEARDROP CELLS SLIGHT
[2017-07-13 12:11] LABS: TROPONIN I 0.017 ng/mL (0.00-0.120)
[2017-07-13 13:19] LABS: SQUAMOUS EPITHIAL < 1 /hpf (0-5); URINE BILIRUBIN NEGATIVE (NEGATIVE); URINE BLOOD MODERATE (NEGATIVE); URINE CLARITY SLIGHTY-CLOUDY (Clear); URINE COLOR YELLOW (YELLOW); URINE GLUCOSE (UA) NEG (Normal); URINE LEUKOCYTE ESTERASE SMALL Leu/uL (Negative); URINE PROTEIN NEGATIVE (NEGATIVE); URINE UROBILINOGEN 0.2-1.0 mg/dL (0.2-1.0)
--- NOTE | 2017-07-13 14:03 | CT ---
PROCEDURE: CT Abdomen and Pelvis without intravenous contrast HISTORY: Diffuse abdominal pain and GI bleeding COMPARISON: None. TECHNIQUE: CT scan of the abdomen and pelvis was performed without administration of intravenous contrast. Oral contrast was not administered. Coronal and sagittal reformatted images were obtained. Radiation dose: Total exam DLP = Total exam DLP = 748.49 mGy-cm. This CT exam was performed using one or more of the following dose reduction techniques: Automated exposure control, adjustment of the mA and/or kV according to patient size, and/or use of iterative reconstruction technique. FINDINGS: LOWER THORAX: The right lung base is clear. There is trace left pleural effusion, left pleural calcification, left lower lobe scarring and mild bronchiectasis in the left lower lobe with coarse calcifications likely a sequela of remote infection. LIVER: Normal in size. No gross lesion or ductal dilatation. GALLBLADDER AND BILE DUCTS: Surgically absent. PANCREAS: Diffuse atrophy. No gross lesion or ductal dilatation. SPLEEN: Normal in size. ADRENALS: No discrete nodule. KIDNEYS AND URETERS: There is bilateral renal cortical atrophy. No hydronephrosis or nephrolithiasis. Nonspecific perinephric fat stranding. Tiny high attenuation area in the lower pole of the right kidney may represent small hemorrhagic cyst. VASCULATURE: Atherosclerotic calcifications. No aortic aneurysm. BOWEL: The small bowel loops are normal in caliber. There is large amount of stool in the colon. No bowel dilatation or obstruction. Sigmoid diverticulosis without CT evidence for acute diverticulitis. There is apparent short segment narrowing at the rectosigmoid junction APPENDIX: Normal appendix. PERITONEUM: No free fluid. No free air. LYMPH NODES: No enlarged lymph nodes. BLADDER: Unremarkable. REPRODUCTIVE: Unremarkable. BONES: No acute fracture. OTHER FINDINGS: None. IMPRESSION: 1. Constipation. No evidence of bowel obstruction. 2. Evaluation of the bowel is limited in the absence of oral contrast. Allowing for this, short segment narrowing at the rectosigmoid junction could be related to underdistention however annular stricture/neoplasm cannot be entirely excluded. Please correlate with sigmoidoscopy as clinically indicated.
--- NOTE | 2017-07-13 21:26 | CP.PCM.HP ---
History of Present Illness - History of Present Illness History of Present Illness: Cc: GI problems History of Present Illness: An 87 year old male with Pmhx of Dementia, anemia and CKD brought to the ED by EMS from long term for evaluation due to dark and bloody vomiting ongoing since this morning. Per NH, patient also had diarrhea with black stools. Unable to obtain further medical complaints as patient is at baseline dementia and cannot provide the information. In the ED patient was noted to have a hgb of 7.2. Two units of prbc have been ordered for transfusion. The patient will be admitted to ICU for further monitoring. Present on Admission - Present on Admission Any Indicators Present on Admission: No Review of Systems - Review of Systems Review of Systems: Unable to complete at this time due to patient unable to give medical complains/ history due to dementia Past Patient History - Past Medical History & Family History Past Medical History?: Yes - Past Social History Smoking Status: Never Smoked - CARDIAC Hx Cardiac Disorders: Yes Hx Hypercholesterolemia: Yes Hx Hypertension: Yes - PULMONARY Hx Respiratory Disorders: No - NEUROLOGICAL Hx Neurological Disorder: No - HEENT Hx HEENT Problems: No - RENAL Other/Comment: Chronic renal failure - ENDOCRINE/METABOLIC Hx Endocrine Disorders: No - HEMATOLOGICAL/ONCOLOGICAL Hx Blood Disorders: Yes Hx Anemia: Yes Hx Human Immunodeficiency Virus (HIV): No - INTEGUMENTARY Hx Dermatological Problems: No - MUSCULOSKELETAL/RHEUMATOLOGICAL Hx Musculoskeletal Disorders: Yes Hx Arthritis: Yes Hx Falls: No - GASTROINTESTINAL Hx Gastrointestinal Disorders: Yes Other/Comment: Upper GI bleed - GENITOURINARY/GYNECOLOGICAL Hx Genitourinary Disorders: Yes Hx Prostate Problems: Yes (enlargement) - PSYCHIATRIC Hx Psychophysiologic Disorder: Yes Hx Substance Use: No - SURGICAL HISTORY Hx Surgeries: Yes Hx Cholecystectomy: Yes - ANESTHESIA Hx Anesthesia: Yes Hx Anesthesia Reactions: No Hx Malignant Hyperthermia: No Meds Home Medications: Home Medication List Medication Instructions Recorded Confirmed Type Pantoprazole Sodium [Protonix] 40 mg PO BID #28 tablet. 07/16/17 Rx Allergies/Adverse Reactions: Allergies Allergy/AdvReac Type Severity Reaction Status Date / Time No Known Allergies Allergy Verified 07/13/17 10:16 Physical Exam - Constitutional Appears: Well, No Acute Distress - Head Exam Head Exam: ATRAUMATIC, NORMOCEPHALIC - Eye Exam Eye Exam: Normal appearance, PERRL Pupil Exam: NORMAL ACCOMODATION - ENT Exam ENT Exam: Mucous Membranes Moist - Neck Exam Neck exam: Positive for: Normal Inspection - Respiratory Exam Respiratory Exam: Clear to Auscultation Bilateral, NORMAL BREATHING PATTERN - Cardiovascular Exam Cardiovascular Exam: REGULAR RHYTHM, +S1, +S2 - GI/Abdominal Exam GI & Abdominal Exam: Normal Bowel Sounds - Rectal Exam Rectal Exam: Black Stool - Extremities Exam Extremities exam: Positive for: normal inspection - Back Exam Back exam: NORMAL INSPECTION - Neurological Exam Neurological exam: Altered - Psychiatric Exam Psychiatric exam: Normal Affect - Skin Skin Exam: Dry, Warm Results - Vital Signs Recent Vital Signs: Last Vital Signs Temp 98.1 F 07/13/17 20:00 Pulse 84 07/13/17 20:00 Resp 15 07/13/17 20:00 BP 130/77 07/13/17 20:00 Pulse Ox 96 07/13/17 20:00 - Labs Result Diagrams: 07/16/17 05:30 07/16/17 05:30 Labs: Laboratory Results - last 24 hr 07/13/17 07/13/17 07/13/17 10:57 10:59 11:02 WBC RBC Hgb Hct MCV MCH MCHC RDW Plt Count MPV Neut % (Auto) Lymph % (Auto) [place] % (Auto) Eos % (Auto) Baso % (Auto) Neut # (Auto) Lymph # (Auto) [place] # (Auto) Eos # (Auto) Baso # (Auto) Neutrophils % (Manual) Band Neutrophils % Lymphocytes % (Manual) Monocytes % (Manual) Platelet Estimate Large Platelets Hypochromasia (manual) Anisocytosis (manual) Tear Drop Cells Ovalocytes [place] Cells pO2 15 L VBG pH 7.31 L VBG pCO2 38 L VBG HCO3 18.7 VBG Total CO2 20.3 L VBG O2 Sat (Calc) 26.9 L VBG Base Excess -6.6 L VBG Potassium 5.2 Sodium 138.0 141 Chloride 107.0 105 Glucose 180 H Lactate 6.5 H* FiO2 21.0 Blood Gas Comments Vbg Crit Value Called To Adore alarcon r.n. Crit Value Called By Adri Crit Value Read Back Y Blood Gas Notified Time 1108 Potassium 5.2 H Carbon Dioxide 16 L Anion Gap 25 H BUN 65 H Creatinine 1.9 H Est GFR ( Amer) 41 Est GFR (Non-Af Amer) 34 POC Glucose (mg/dL) 190 H Random Glucose 168 H Lactic Acid Calcium 8.1 L Total Bilirubin 0.4 AST 21 ALT 25 Alkaline Phosphatase 76 Troponin I 0.0170 Total Protein 6.4 Albumin 3.1 L D Globulin 3.3 Albumin/Globulin Ratio 0.9 L Amylase 99 Lipase 122 Venous Blood Potassium 5.2 Urine Color Urine Clarity Urine pH Ur Specific [place] Urine Protein Urine Glucose (UA) Urine Ketones Urine Blood Urine Nitrate Urine Bilirubin Urine Urobilinogen Ur Leukocyte Esterase Urine RBC (Auto) Urine Microscopic WBC Ur Squamous Epith Cells Blood Type Antibody Screen Crossmatch BBK History Checked 07/13/17 07/13/17 07/13/17 11:02 11:02 11:02 WBC 13.3 H D RBC 2.42 L Hgb 7.2 L D Hct 21.7 L MCV 89.7 MCH 29.9 MCHC 33.3 RDW 15.2 H Plt Count 277 MPV 8.8 Neut % (Auto) 85.8 H Lymph % (Auto) 9.5 L [place] % (Auto) 4.0 Eos % (Auto) 0.4 Baso % (Auto) 0.3 Neut # (Auto) 11.5 H Lymph # (Auto) 1.3 [place] # (Auto) 0.5 Eos # (Auto) 0.0 Baso # (Auto) 0.0 Neutrophils % (Manual) 82 H Band Neutrophils % 5 H Lymphocytes % (Manual) 9 L Monocytes % (Manual) 4 Platelet Estimate Normal Large Platelets Present Hypochromasia (manual) Moderate Anisocytosis (manual) Slight Tear Drop Cells Slight Ovalocytes Slight [place] Cells Slight pO2 VBG pH VBG pCO2 VBG HCO3 VBG Total CO2 VBG O2 Sat (Calc) VBG Base Excess VBG Potassium Sodium Chloride Glucose Lactate FiO2 Blood Gas Comments Crit Value Called To Crit Value Called By Crit Value Read Back Blood Gas Notified Time Potassium Carbon Dioxide Anion Gap BUN Creatinine Est GFR ( Amer) Est GFR (Non-Af Amer) POC Glucose (mg/dL) Random Glucose Lactic Acid 6.6 H* Calcium Total Bilirubin AST ALT Alkaline Phosphatase Troponin I Total Protein Albumin Globulin Albumin/Globulin Ratio Amylase Lipase Venous Blood Potassium Urine Color Urine Clarity Urine pH Ur Specific [place] Urine Protein Urine Glucose (UA) Urine Ketones Urine Blood Urine Nitrate Urine Bilirubin Urine Urobilinogen Ur Leukocyte Esterase Urine RBC (Auto) Urine Microscopic WBC Ur Squamous Epith Cells Blood Type A POSITIVE Antibody Screen Negative Crossmatch See Detail BBK History Checked Patient has bt 07/13/17 07/13/17 13:07 20:00 WBC RBC Hgb Hct MCV MCH MCHC RDW Plt Count MPV Neut % (Auto) Lymph % (Auto) [place] % (Auto) Eos % (Auto) Baso % (Auto) Neut # (Auto) Lymph # (Auto) [place] # (Auto) Eos # (Auto) Baso # (Auto) Neutrophils % (Manual) Band Neutrophils % Lymphocytes % (Manual) Monocytes % (Manual) Platelet Estimate Large Platelets Hypochromasia (manual) Anisocytosis (manual) Tear Drop Cells Ovalocytes [place] Cells pO2 VBG pH VBG pCO2 VBG HCO3 VBG Total CO2 VBG O2 Sat (Calc) VBG Base Excess VBG Potassium Sodium Chloride Glucose Lactate FiO2 Blood Gas Comments Crit Value Called To Crit Value Called By Crit Value Read Back Blood Gas Notified Time Potassium Carbon Dioxide Anion Gap BUN Creatinine Est GFR ( Amer) Est GFR (Non-Af Amer) POC Glucose (mg/dL) Random Glucose Lactic Acid 1.6 Calcium Total Bilirubin AST ALT Alkaline Phosphatase Troponin I Total Protein Albumin Globulin Albumin/Globulin Ratio Amylase Lipase Venous Blood Potassium Urine Color Yellow Urine Clarity Slighty-cloudy Urine pH 5.0 Ur Specific [place] 1.015 Urine Protein Negative Urine Glucose (UA) Neg Urine Ketones Negative Urine Blood Moderate Urine Nitrate Negative Urine Bilirubin Negative Urine Urobilinogen 0.2-1.0 Ur Leukocyte Esterase Small Urine RBC (Auto) 3 Urine Microscopic WBC 11 H Ur Squamous Epith Cells < 1 Blood Type Antibody Screen Crossmatch BBK History Checked - Imaging and Cardiology CT Abd/Pelvis Additional comment: PROCEDURE: CT Abdomen and Pelvis without intravenous contrast HISTORY: Diffuse abdominal pain and GI bleeding COMPARISON: None. TECHNIQUE: CT scan of the abdomen and pelvis was performed without administration of intravenous contrast. Oral contrast was not administered. Coronal and sagittal reformatted images were obtained. Radiation dose: Total exam DLP = Total exam DLP = 748.49 mGy-cm. This CT exam was performed using one or more of the following dose reduction techniques: Automated exposure control, adjustment of the mA and/or kV according to patient size, and/or use of iterative reconstruction technique. FINDINGS: LOWER THORAX: The right lung base is clear. There is trace left pleural effusion, left pleural calcification, left lower lobe scarring and mild bronchiectasis in the left lower lobe with coarse calcifications likely a sequela of remote infection. LIVER: Normal in size. No gross lesion or ductal dilatation. GALLBLADDER AND BILE DUCTS: Surgically absent. PANCREAS: Diffuse atrophy. No gross lesion or ductal dilatation. SPLEEN: Normal in size. ADRENALS: No discrete nodule. KIDNEYS AND URETERS: There is bilateral renal cortical atrophy. No hydronephrosis or nephrolithiasis. Nonspecific perinephric fat stranding. Tiny high attenuation area in the lower pole of the right kidney may represent small hemorrhagic cyst. VASCULATURE: Atherosclerotic calcifications. No aortic aneurysm. BOWEL: The small bowel loops are normal in caliber. There is large amount of stool in the colon. No bowel dilatation or obstruction. Sigmoid diverticulosis without CT evidence for acute diverticulitis. There is apparent short segment narrowing at the rectosigmoid junction APPENDIX: Normal appendix. PERITONEUM: No free fluid. No free air. LYMPH NODES: No enlarged lymph nodes. BLADDER: Unremarkable. REPRODUCTIVE: Unremarkable. BONES: No acute fracture. OTHER FINDINGS: None. IMPRESSION: 1. Constipation. No evidence of bowel obstruction. 2. Evaluation of the bowel is limited in the absence of oral contrast. Allowing for this, short segment narrowing at the rectosigmoid junction could be related to underdistention however annular stricture/neoplasm cannot be entirely excluded. Please correlate with sigmoidoscopy as clinically indicated. Assessment & Plan (1) GI bleed Status: Acute (2) Anemia Status: Acute (3) CKD (chronic kidney disease) Status: Acute (4) Dementia Status: Acute (5) Hyperkalemia Status: Acute Priority: High - Assessment and Plan (Free Text) Assessment: 87 year old male with dementia, CKD, anemia presents with coffe-ground vomit from [place] Plan: Hgb 7.2 - transfuse 2 units prbc NPO IVF GI consult Monitor electrolytes ICU management GI prophylaxis Hold other medications
[2017-07-14] MEDS: Pantoprazole 40 MG in Sodium Chloride 0.9% 100 ML IVPB SCH ×2 (05:26→05:27)
[2017-07-14 05:38] LABS: HEMOGLOBIN 8.6 g/dL (12.0-18.0); MEAN CELL VOLUME 88.2 fl (80.0-94.0); MEAN CORPUSCULAR HEMOGLOBIN 30.3 pg (27.0-31.0); MEAN CORPUSCULAR HGB CONC 34.3 g/dL (33.0-37.0); RBC 2.84 Mil/uL (4.40-5.90); RED CELL DISTRIBUTION WIDTH 14.5 % (11.5-14.5); WHITE BLOOD COUNT 9.4 K/uL (4.8-10.8)
[2017-07-14 05:57] LABS: CALCIUM 8.4 mg/dL (8.4-10.2)
--- NOTE | 2017-07-14 06:40 | PN ---
CRITICAL CARE PROGRESS NOTE DATE: 07/13/2017 LOCATION: The patient is in ICU, bed 421. TIME SPENT: 45 minutes. SUBJECTIVE: The patient is seen and evaluated at the bedside along with the patient's son who speaks [place]. The patient's past medical, surgical and social history reviewed. Events in the ER noted. Discussed with ER physician. Mr. Townsend is an 87-year-old male with history significant for dementia, anemia of chronic renal insufficiency, was admitted through emergency room complaining of melanotic stool associated with coffee-ground emesis reported by snf staff. The patient was in the ER. The patient's vital signs showed temperature 96.9, heart rate 90, respiratory rate 19, blood pressure 106/47, and pulse oximetry 100%. The patient's initial hemoglobin was noted to be low 7.2. The patient's initial vital signs showed afebrile, heart rate of 90 and regular, respiratory rate 19, saturation 100%, and blood pressure 106/47, and mean arterial pressure of 66. The patient was given IV fluids, transfusion of 2 units of packed red blood cells were ordered. The CT of the abdomen obtained and showed no acute pathology except for possible diverticulosis with narrowing at the distal rectosigmoid junction. OUTPATIENT MEDICATIONS: Include Tylenol, Coreg, Plavix, furosemide, Remeron, Flomax and tramadol. ALLERGIES: NONE DOCUMENTED. FAMILY HISTORY: Noncontributory. SOCIAL HISTORY: Nonsmoker and non-EtOH user. No recreational drug user. Currently lives in a snf. PHYSICAL EXAMINATION: GENERAL: Elderly male, alert, awake, and oriented to name, place, but not to time. VITAL SIGNS: Include temperature 98.6, heart rate 87 and regular, blood pressure 132/74, respiratory rate 18, and saturation 100%. HEAD, EYES, EARS, NOSE AND THROAT: Pupils are reactive. Conjunctivae pale. Sclerae are white. NECK: Supple. Trachea is central. CHEST: Bilateral breath sounds clear to auscultation anteriorly and laterally. HEART: Rhythm regular, S1 and S2 normal. ABDOMEN: Bowel sounds are present. Soft. Liver and spleen not palpable. Bladder not distended. EXTREMITIES: No clubbing or cyanosis. Trace edema. NEUROLOGIC: Nonfocal. CURRENT MEDICATIONS: Protonix drip 40 mg in 100 mL every 5 hours at 8 mg per hour, status post ampicillin 3 g given in the ER, status post IV hydration 1 L. LABORATORY DATA: WBC 13.3, hemoglobin 7.2, hematocrit 21.7, MCV 89.7, platelet count of 277, neutrophils 85.8, lymphocytes 9.5, and monocytes 9.5. VBG; lactate of 6.5 and glucose 180. SMA-7; sodium 141, potassium 5.2, chloride 105, CO2 of 16, blood urea nitrogen 65, creatinine 1.9, random glucose 168, lactic acid 6.6, calcium 8.1, total bilirubin 0.4, AST 21, ALT 25, alkaline phosphatase 76, total troponin 0.0170, total protein 6.4, albumin 3.1, amylase 99, and lipase 122. CAT scan of the abdomen, diverticulosis. EKG shows sinus rhythm first-degree A-V block, left ventricular hypertrophy with repolarization abnormality. IMPRESSION AND PLAN: An 87-year-old male with coffee-ground emesis along with melanotic stool, possible gastrointestinal bleeding upper versus lower, admitted recently for the same reason, colonoscopy and esophagogastroduodenoscopy deferred secondary to the multiple comorbidities. Gastrointestinal evaluation requested. Continue with Protonix drip. Hold aspirin and Plavix. The patient has been on multiple anti-inflammatory medications as well though being held now. Monitor closely the hemoglobin. Transfuse 2 units of packed red blood cells. Maintain hemoglobin close to 10. Deep venous thrombosis prophylaxis with Venodyne boots. Continue to monitor leukocytosis. We will hold antibiotics as there is no clear evidence of infection now. Jaciel Ng MD
--- NOTE | 2017-07-14 08:44 | CP.PCM.CON ---
History of Present Illness - History of Present Illness History of Present Illness: 87 yo male with dementia and CKD admitted with vomiting of dark/black emesis. Patient also c/o constipation. Otherwise history difficult to obtain due to dementia. Patient on Plavix. Review of Systems - Review of Systems Systems not reviewed;Unavailable: Dementia Past Patient History - Past Medical History & Family History Past Medical History?: Yes - Past Social History Smoking Status: Never Smoked - CARDIAC Hx Cardiac Disorders: Yes Hx Hypercholesterolemia: Yes Hx Hypertension: Yes - PULMONARY Hx Respiratory Disorders: No - NEUROLOGICAL Hx Neurological Disorder: No - HEENT Hx HEENT Problems: No - RENAL Other/Comment: Chronic renal failure - ENDOCRINE/METABOLIC Hx Endocrine Disorders: No - HEMATOLOGICAL/ONCOLOGICAL Hx Blood Disorders: Yes Hx Anemia: Yes Hx Human Immunodeficiency Virus (HIV): No - INTEGUMENTARY Hx Dermatological Problems: No - MUSCULOSKELETAL/RHEUMATOLOGICAL Hx Musculoskeletal Disorders: Yes Hx Arthritis: Yes Hx Falls: No - GASTROINTESTINAL Hx Gastrointestinal Disorders: Yes Other/Comment: Upper GI bleed - GENITOURINARY/GYNECOLOGICAL Hx Genitourinary Disorders: Yes Hx Prostate Problems: Yes (enlargement) - PSYCHIATRIC Hx Psychophysiologic Disorder: Yes Hx Substance Use: No - SURGICAL HISTORY Hx Surgeries: Yes Hx Cholecystectomy: Yes - ANESTHESIA Hx Anesthesia: Yes Hx Anesthesia Reactions: No Hx Malignant Hyperthermia: No Meds Allergies/Adverse Reactions: Allergies Allergy/AdvReac Type Severity Reaction Status Date / Time No Known Allergies Allergy Verified 07/13/17 10:16 - Medications Medications: Current Medications Pantoprazole Sodium 40 mg/ (Sodium Chloride) 100 mls @ 20 mls/hr IVPB Q5H DEMETRIO PRN Reason: 8 MG/HR Last Admin: 07/14/17 05:27 Dose: 20 mls/hr Physical Exam - Head Exam Head Exam: ATRAUMATIC - Eye Exam Eye Exam: Normal appearance Pupil Exam: PERRL - ENT Exam ENT Exam: Mucous Membranes Moist - Respiratory Exam Respiratory Exam: Clear to Auscultation Bilateral, NORMAL BREATHING PATTERN - GI/Abdominal Exam GI & Abdominal Exam: Normal Bowel Sounds, Soft. absent: Tenderness Results - Vital Signs Recent Vital Signs: Last Vital Signs Temp 98.6 F 07/14/17 08:00 Pulse 70 07/14/17 08:00 Resp 12 07/14/17 08:00 BP 134/64 07/14/17 08:00 Pulse Ox 97 07/14/17 08:00 - Labs Result Diagrams: 07/14/17 04:20 07/14/17 04:20 Labs: Laboratory Results - last 24 hr 07/13/17 07/13/17 07/13/17 10:57 10:59 11:02 WBC RBC Hgb Hct MCV MCH MCHC RDW Plt Count MPV Neut % (Auto) Lymph % (Auto) [place] % (Auto) Eos % (Auto) Baso % (Auto) Neut # (Auto) Lymph # (Auto) [place] # (Auto) Eos # (Auto) Baso # (Auto) Neutrophils % (Manual) Band Neutrophils % Lymphocytes % (Manual) Monocytes % (Manual) Platelet Estimate Large Platelets Hypochromasia (manual) Anisocytosis (manual) Tear Drop Cells Ovalocytes [place] Cells pO2 15 L VBG pH 7.31 L VBG pCO2 38 L VBG HCO3 18.7 VBG Total CO2 20.3 L VBG O2 Sat (Calc) 26.9 L VBG Base Excess -6.6 L VBG Potassium 5.2 Sodium 138.0 141 Chloride 107.0 105 Glucose 180 H Lactate 6.5 H* FiO2 21.0 Blood Gas Comments Vbg Crit Value Called To Adore alarcon r.n. Crit Value Called By Adri Crit Value Read Back Y Blood Gas Notified Time 1108 Potassium 5.2 H Carbon Dioxide 16 L Anion Gap 25 H BUN 65 H Creatinine 1.9 H Est GFR ( Amer) 41 Est GFR (Non-Af Amer) 34 POC Glucose (mg/dL) 190 H Random Glucose 168 H Lactic Acid Calcium 8.1 L Total Bilirubin 0.4 AST 21 ALT 25 Alkaline Phosphatase 76 Troponin I 0.0170 Total Protein 6.4 Albumin 3.1 L D Globulin 3.3 Albumin/Globulin Ratio 0.9 L Amylase 99 Lipase 122 Venous Blood Potassium 5.2 Urine Color Urine Clarity Urine pH Ur Specific [place] Urine Protein Urine Glucose (UA) Urine Ketones Urine Blood Urine Nitrate Urine Bilirubin Urine Urobilinogen Ur Leukocyte Esterase Urine RBC (Auto) Urine Microscopic WBC Ur Squamous Epith Cells Blood Type Antibody Screen Crossmatch BBK History Checked 07/13/17 07/13/17 07/13/17 11:02 11:02 11:02 WBC 13.3 H D RBC 2.42 L Hgb 7.2 L D Hct 21.7 L MCV 89.7 MCH 29.9 MCHC 33.3 RDW 15.2 H Plt Count 277 MPV 8.8 Neut % (Auto) 85.8 H Lymph % (Auto) 9.5 L [place] % (Auto) 4.0 Eos % (Auto) 0.4 Baso % (Auto) 0.3 Neut # (Auto) 11.5 H Lymph # (Auto) 1.3 [place] # (Auto) 0.5 Eos # (Auto) 0.0 Baso # (Auto) 0.0 Neutrophils % (Manual) 82 H Band Neutrophils % 5 H Lymphocytes % (Manual) 9 L Monocytes % (Manual) 4 Platelet Estimate Normal Large Platelets Present Hypochromasia (manual) Moderate Anisocytosis (manual) Slight Tear Drop Cells Slight Ovalocytes Slight [place] Cells Slight pO2 VBG pH VBG pCO2 VBG HCO3 VBG Total CO2 VBG O2 Sat (Calc) VBG Base Excess VBG Potassium Sodium Chloride Glucose Lactate FiO2 Blood Gas Comments Crit Value Called To Crit Value Called By Crit Value Read Back Blood Gas Notified Time Potassium Carbon Dioxide Anion Gap BUN Creatinine Est GFR ( Amer) Est GFR (Non-Af Amer) POC Glucose (mg/dL) Random Glucose Lactic Acid 6.6 H* Calcium Total Bilirubin AST ALT Alkaline Phosphatase Troponin I Total Protein Albumin Globulin Albumin/Globulin Ratio Amylase Lipase Venous Blood Potassium Urine Color Urine Clarity Urine pH Ur Specific [place] Urine Protein Urine Glucose (UA) Urine Ketones Urine Blood Urine Nitrate Urine Bilirubin Urine Urobilinogen Ur Leukocyte Esterase Urine RBC (Auto) Urine Microscopic WBC Ur Squamous Epith Cells Blood Type A POSITIVE Antibody Screen Negative Crossmatch See Detail BBK History Checked Patient has bt 07/13/17 07/13/17 07/14/17 13:07 20:00 04:20 WBC 9.4 RBC 2.84 L Hgb 8.6 L Hct 25.1 L MCV 88.2 MCH 30.3 MCHC 34.3 RDW 14.5 Plt Count 181 MPV Neut % (Auto) Lymph % (Auto) [place] % (Auto) Eos % (Auto) Baso % (Auto) Neut # (Auto) Lymph # (Auto) [place] # (Auto) Eos # (Auto) Baso # (Auto) Neutrophils % (Manual) Band Neutrophils % Lymphocytes % (Manual) Monocytes % (Manual) Platelet Estimate Large Platelets Hypochromasia (manual) Anisocytosis (manual) Tear Drop Cells Ovalocytes [place] Cells pO2 VBG pH VBG pCO2 VBG HCO3 VBG Total CO2 VBG O2 Sat (Calc) VBG Base Excess VBG Potassium Sodium Chloride Glucose Lactate FiO2 Blood Gas Comments Crit Value Called To Crit Value Called By Crit Value Read Back Blood Gas Notified Time Potassium Carbon Dioxide Anion Gap BUN Creatinine Est GFR ( Amer) Est GFR (Non-Af Amer) POC Glucose (mg/dL) Random Glucose Lactic Acid 1.6 Calcium Total Bilirubin AST ALT Alkaline Phosphatase Troponin I Total Protein Albumin Globulin Albumin/Globulin Ratio Amylase Lipase Venous Blood Potassium Urine Color Yellow Urine Clarity Slighty-cloudy Urine pH 5.0 Ur Specific [place] 1.015 Urine Protein Negative Urine Glucose (UA) Neg Urine Ketones Negative Urine Blood Moderate Urine Nitrate Negative Urine Bilirubin Negative Urine Urobilinogen 0.2-1.0 Ur Leukocyte Esterase Small Urine RBC (Auto) 3 Urine Microscopic WBC 11 H Ur Squamous Epith Cells < 1 Blood Type Antibody Screen Crossmatch BBK History Checked 07/14/17 04:20 WBC RBC Hgb Hct MCV MCH MCHC RDW Plt Count MPV Neut % (Auto) Lymph % (Auto) [place] % (Auto) Eos % (Auto) Baso % (Auto) Neut # (Auto) Lymph # (Auto) [place] # (Auto) Eos # (Auto) Baso # (Auto) Neutrophils % (Manual) Band Neutrophils % Lymphocytes % (Manual) Monocytes % (Manual) Platelet Estimate Large Platelets Hypochromasia (manual) Anisocytosis (manual) Tear Drop Cells Ovalocytes [place] Cells pO2 VBG pH VBG pCO2 VBG HCO3 VBG Total CO2 VBG O2 Sat (Calc) VBG Base Excess VBG Potassium Sodium 146 Chloride 112 H Glucose Lactate FiO2 Blood Gas Comments Crit Value Called To Crit Value Called By Crit Value Read Back Blood Gas Notified Time Potassium 4.3 Carbon Dioxide 22 Anion Gap 16 BUN 73 H Creatinine 1.8 H Est GFR ( Amer) 43 Est GFR (Non-Af Amer) 36 POC Glucose (mg/dL) Random Glucose 95 Lactic Acid Calcium 8.4 Total Bilirubin AST ALT Alkaline Phosphatase Troponin I Total Protein Albumin Globulin Albumin/Globulin Ratio Amylase Lipase Venous Blood Potassium Urine Color Urine Clarity Urine pH Ur Specific [place] Urine Protein Urine Glucose (UA) Urine Ketones Urine Blood Urine Nitrate Urine Bilirubin Urine Urobilinogen Ur Leukocyte Esterase Urine RBC (Auto) Urine Microscopic WBC Ur Squamous Epith Cells Blood Type Antibody Screen Crossmatch BBK History Checked Assessment & Plan (1) Upper GI bleed Assessment and Plan: Upper GI bleed in elderly patient on Plavix. Continue PPI. Upper endoscopy to rule out gastritis, ulcer , and esophagitis. Status: Acute
[2017-07-14] MEDS ORDERED: Lactated Ringer's 500 ML IV ONE (09:05)
[2017-07-14] MEDS ORDERED: Propofol 10 mg/ml Inj (20 ML) ONE (09:12)
[2017-07-14] MEDS ORDERED: Etomidate 20 mg/10ml Inj IV ONE (09:12)
[2017-07-14] MEDS ORDERED: Lidocaine PF 2% (5 ml) Inj (For Cardiac Arrhy) IV ONE (09:12)
--- NOTE | 2017-07-14 09:20 | PQF GENQUE ---
Dr. Sethi, Please clarify the stage of the chronic kidney disease: Stage 1 Stage 2 (mild) Stage 3 (moderate) Stage 4 (severe) Stage 5 Other (please specify) Clinically unable to determine Unknown BUN:65->73 Creatinine:1.9->1.8 Est GFR ( Amer/Non- Af Amer):41/34->43/36 ER: Clinical Impression:Hypovolemic shock, Upper GI bleed POA; Pressure Ulcer (bl heel ulcers) Draft H and P: History: Chronic Renal Failure Critical Care note: hx, significant for dementia, anemia of chronic renal insufficiency Impression: coffee-ground emesis along with melanotic stool, possible gastrointestinal bleeding upper versus lower Packed Cells, IVF's This form is a permanent part of the medical record Clarification of your documentation is requested to better reflect the severity of illness and intensity of treatment of your patient. Indicators present [] Specify: [] [] Specify: [] [] Specify: [] [] Specify: [] Location in the medical record that reflects the above clinical findings: [] Treatment Provided: [] PHYSICIAN'S RESPONSE Based on your medical judgment of the clinical indicators outlined above please clarify the following: [] Practitioner response [] If unable to determine, please check the box, sign and date. Present On Admission (POA) Indicator: [] Present at the time of admission [] Not present at the time of admission [] Clinically Undetermined In responding to this query, please exercise your independent professional judgment. The fact that a question is asked does not imply that any particular answer is desired or expected. Thank you for your clarification on this documentation. If you have any questions please call. * Thank you, Adri Christina RN ext. #[phone] MTDD
--- NOTE | 2017-07-14 09:54 | CP.PCM.PN ---
Subjective - Date & Time of Evaluation Date of Evaluation: 07/14/17 Time of Evaluation: 09:51 - Subjective Subjective: S/p upper endoscopy. Objective - Vital Signs/Intake and Output Vital Signs (last 24 hours): Temp Pulse Resp BP Pulse Ox 97.5 F L 66 16 145/67 100 07/14/17 09:40 07/14/17 09:40 07/14/17 09:40 07/14/17 09:40 07/14/17 09:40 Intake and Output: 07/14/17 07/14/17 06:59 18:59 Intake Total 340 100 Output Total 390 Balance -50 100 - Medications Medications: Current Medications Pantoprazole Sodium 40 mg/ (Sodium Chloride) 100 mls @ 20 mls/hr IVPB Q5H DEMETRIO PRN Reason: 8 MG/HR Last Admin: 07/14/17 05:27 Dose: 20 mls/hr - Labs Labs: 07/14/17 04:20 07/14/17 04:20 - Head Exam Head Exam: ATRAUMATIC - Eye Exam Eye Exam: Normal appearance - ENT Exam ENT Exam: Normal Exam - Respiratory Exam Respiratory Exam: NORMAL BREATHING PATTERN - Cardiovascular Exam Cardiovascular Exam: REGULAR RHYTHM - GI/Abdominal Exam GI & Abdominal Exam: Normal Bowel Sounds Assessment and Plan (1) Upper GI bleed Assessment & Plan: Upper endoscopy showed gastric ulcer covered by clot. No bleeding at present. Continue IV pantoprazole and avoid ASA and plavix. Endoscopic treatment of ulcer if bleeding recurs. Repeat endoscopy in one week to evaluate healing. Status: Acute
--- NOTE | 2017-07-14 10:56 | CP.PCM.CON ---
History of Present Illness - History of Present Illness History of Present Illness: Podiatry Consult- Dr. Frances 87 y.o male seen and evaluated for bilaterally heel ulcerations. He is seen resting comfortably and NAD. He reports that he has had these wounds for a while.He describes the pain as an ache and sore. Reports that he sees a auto repair shop manager every Wednesday who manages his wounds. Can't recall her auto repair shop manager . Denies nausea, vomiting, shortness of breath, chest pains or chills. No new pedal complaints. Interpretation Service Used Past Patient History - Past Medical History & Family History Past Medical History?: Yes - Past Social History Smoking Status: Never Smoked - CARDIAC Hx Cardiac Disorders: Yes Hx Hypercholesterolemia: Yes Hx Hypertension: Yes - PULMONARY Hx Respiratory Disorders: No - NEUROLOGICAL Hx Neurological Disorder: No - HEENT Hx HEENT Problems: No - RENAL Other/Comment: Chronic renal failure - ENDOCRINE/METABOLIC Hx Endocrine Disorders: No - HEMATOLOGICAL/ONCOLOGICAL Hx Blood Disorders: Yes Hx Anemia: Yes Hx Human Immunodeficiency Virus (HIV): No - INTEGUMENTARY Hx Dermatological Problems: No - MUSCULOSKELETAL/RHEUMATOLOGICAL Hx Musculoskeletal Disorders: Yes Hx Arthritis: Yes Hx Falls: No - GASTROINTESTINAL Hx Gastrointestinal Disorders: Yes Other/Comment: Upper GI bleed - GENITOURINARY/GYNECOLOGICAL Hx Genitourinary Disorders: Yes Hx Prostate Problems: Yes (enlargement) - PSYCHIATRIC Hx Psychophysiologic Disorder: Yes Hx Substance Use: No - SURGICAL HISTORY Hx Surgeries: Yes Hx Cholecystectomy: Yes - ANESTHESIA Hx Anesthesia: Yes Hx Anesthesia Reactions: No Hx Malignant Hyperthermia: No Meds Allergies/Adverse Reactions: Allergies Allergy/AdvReac Type Severity Reaction Status Date / Time No Known Allergies Allergy Verified 07/13/17 10:16 - Medications Medications: Current Medications Pantoprazole Sodium 40 mg/ (Sodium Chloride) 100 mls @ 20 mls/hr IVPB Q5H DEMETRIO PRN Reason: 8 MG/HR Last Admin: 07/14/17 05:27 Dose: 20 mls/hr Physical Exam - Constitutional Appears: Well, Non-toxic, No Acute Distress - Extremities Exam Extremities exam: Negative for: calf tenderness Additional comments: Vasc: DP and PT faintly palpation, temperature gradient WNL, digital hair absent , no edema noted to the LE, CFT < 3 seconds x 10 digits Ortho: pain with palpation to the heels, no calf pain or tenderness with palpation Neuro: gross sensation intact Derm: superficial ulceration to the right plantar heel, measuring approximately 3 x 2 x .1, with wound base pale pink, no fibrotic or necrotic tissue appreciated mild erythema, no streaking, no increase calor, no tunneling, no fluctuance, no probe to bone, ulceration noted to the medial aspect of the heel measuring approximately .5 x .5 x .1, fibrotic in nature, no erythema, no streaking, no increase calor, no tunneling, no fluctuance, no probe to bone abrasion noted to the anterior aspect of the left foot, no clinical signs of infection to the LE at this time Results - Vital Signs Recent Vital Signs: Last Vital Signs Temp 97.5 F L 07/14/17 09:40 Pulse 66 07/14/17 09:40 Resp 16 07/14/17 09:40 BP 145/67 07/14/17 09:40 Pulse Ox 100 07/14/17 09:40 - Labs Result Diagrams: 07/14/17 04:20 07/14/17 04:20 Labs: Laboratory Results - last 24 hr 07/13/17 07/13/17 07/13/17 10:57 10:59 11:02 WBC RBC Hgb Hct MCV MCH MCHC RDW Plt Count MPV Neut % (Auto) Lymph % (Auto) Foster % (Auto) Eos % (Auto) Baso % (Auto) Neut # (Auto) Lymph # (Auto) Foster # (Auto) Eos # (Auto) Baso # (Auto) Neutrophils % (Manual) Band Neutrophils % Lymphocytes % (Manual) Monocytes % (Manual) Platelet Estimate Large Platelets Hypochromasia (manual) Anisocytosis (manual) Tear Drop Cells Ovalocytes [place] Cells pO2 15 L VBG pH 7.31 L VBG pCO2 38 L VBG HCO3 18.7 VBG Total CO2 20.3 L VBG O2 Sat (Calc) 26.9 L VBG Base Excess -6.6 L VBG Potassium 5.2 Sodium 138.0 141 Chloride 107.0 105 Glucose 180 H Lactate 6.5 H* FiO2 21.0 Blood Gas Comments Vbg Crit Value Called To Adore alarcon r.n. Crit Value Called By Adri Crit Value Read Back Y Blood Gas Notified Time 1108 Potassium 5.2 H Carbon Dioxide 16 L Anion Gap 25 H BUN 65 H Creatinine 1.9 H Est GFR ( Amer) 41 Est GFR (Non-Af Amer) 34 POC Glucose (mg/dL) 190 H Random Glucose 168 H Lactic Acid Calcium 8.1 L Total Bilirubin 0.4 AST 21 ALT 25 Alkaline Phosphatase 76 Troponin I 0.0170 Total Protein 6.4 Albumin 3.1 L D Globulin 3.3 Albumin/Globulin Ratio 0.9 L Amylase 99 Lipase 122 Venous Blood Potassium 5.2 Urine Color Urine Clarity Urine pH Ur Specific [place] Urine Protein Urine Glucose (UA) Urine Ketones Urine Blood Urine Nitrate Urine Bilirubin Urine Urobilinogen Ur Leukocyte Esterase Urine RBC (Auto) Urine Microscopic WBC Ur Squamous Epith Cells Blood Type Antibody Screen Crossmatch BBK History Checked 07/13/17 07/13/17 07/13/17 11:02 11:02 11:02 WBC 13.3 H D RBC 2.42 L Hgb 7.2 L D Hct 21.7 L MCV 89.7 MCH 29.9 MCHC 33.3 RDW 15.2 H Plt Count 277 MPV 8.8 Neut % (Auto) 85.8 H Lymph % (Auto) 9.5 L Foster % (Auto) 4.0 Eos % (Auto) 0.4 Baso % (Auto) 0.3 Neut # (Auto) 11.5 H Lymph # (Auto) 1.3 Foster # (Auto) 0.5 Eos # (Auto) 0.0 Baso # (Auto) 0.0 Neutrophils % (Manual) 82 H Band Neutrophils % 5 H Lymphocytes % (Manual) 9 L Monocytes % (Manual) 4 Platelet Estimate Normal Large Platelets Present Hypochromasia (manual) Moderate Anisocytosis (manual) Slight Tear Drop Cells Slight Ovalocytes Slight [place] Cells Slight pO2 VBG pH VBG pCO2 VBG HCO3 VBG Total CO2 VBG O2 Sat (Calc) VBG Base Excess VBG Potassium Sodium Chloride Glucose Lactate FiO2 Blood Gas Comments Crit Value Called To Crit Value Called By Crit Value Read Back Blood Gas Notified Time Potassium Carbon Dioxide Anion Gap BUN Creatinine Est GFR ( Amer) Est GFR (Non-Af Amer) POC Glucose (mg/dL) Random Glucose Lactic Acid 6.6 H* Calcium Total Bilirubin AST ALT Alkaline Phosphatase Troponin I Total Protein Albumin Globulin Albumin/Globulin Ratio Amylase Lipase Venous Blood Potassium Urine Color Urine Clarity Urine pH Ur Specific [place] Urine Protein Urine Glucose (UA) Urine Ketones Urine Blood Urine Nitrate Urine Bilirubin Urine Urobilinogen Ur Leukocyte Esterase Urine RBC (Auto) Urine Microscopic WBC Ur Squamous Epith Cells Blood Type A POSITIVE Antibody Screen Negative Crossmatch See Detail BBK History Checked Patient has bt 07/13/17 07/13/17 07/14/17 13:07 20:00 04:20 WBC 9.4 RBC 2.84 L Hgb 8.6 L Hct 25.1 L MCV 88.2 MCH 30.3 MCHC 34.3 RDW 14.5 Plt Count 181 MPV Neut % (Auto) Lymph % (Auto) Foster % (Auto) Eos % (Auto) Baso % (Auto) Neut # (Auto) Lymph # (Auto) Foster # (Auto) Eos # (Auto) Baso # (Auto) Neutrophils % (Manual) Band Neutrophils % Lymphocytes % (Manual) Monocytes % (Manual) Platelet Estimate Large Platelets Hypochromasia (manual) Anisocytosis (manual) Tear Drop Cells Ovalocytes [place] Cells pO2 VBG pH VBG pCO2 VBG HCO3 VBG Total CO2 VBG O2 Sat (Calc) VBG Base Excess VBG Potassium Sodium Chloride Glucose Lactate FiO2 Blood Gas Comments Crit Value Called To Crit Value Called By Crit Value Read Back Blood Gas Notified Time Potassium Carbon Dioxide Anion Gap BUN Creatinine Est GFR ( Amer) Est GFR (Non-Af Amer) POC Glucose (mg/dL) Random Glucose Lactic Acid 1.6 Calcium Total Bilirubin AST ALT Alkaline Phosphatase Troponin I Total Protein Albumin Globulin Albumin/Globulin Ratio Amylase Lipase Venous Blood Potassium Urine Color Yellow Urine Clarity Slighty-cloudy Urine pH 5.0 Ur Specific [place] 1.015 Urine Protein Negative Urine Glucose (UA) Neg Urine Ketones Negative Urine Blood Moderate Urine Nitrate Negative Urine Bilirubin Negative Urine Urobilinogen 0.2-1.0 Ur Leukocyte Esterase Small Urine RBC (Auto) 3 Urine Microscopic WBC 11 H Ur Squamous Epith Cells < 1 Blood Type Antibody Screen Crossmatch BBK History Checked 07/14/17 04:20 WBC RBC Hgb Hct MCV MCH MCHC RDW Plt Count MPV Neut % (Auto) Lymph % (Auto) Foster % (Auto) Eos % (Auto) Baso % (Auto) Neut # (Auto) Lymph # (Auto) Foster # (Auto) Eos # (Auto) Baso # (Auto) Neutrophils % (Manual) Band Neutrophils % Lymphocytes % (Manual) Monocytes % (Manual) Platelet Estimate Large Platelets Hypochromasia (manual) Anisocytosis (manual) Tear Drop Cells Ovalocytes [place] Cells pO2 VBG pH VBG pCO2 VBG HCO3 VBG Total CO2 VBG O2 Sat (Calc) VBG Base Excess VBG Potassium Sodium 146 Chloride 112 H Glucose Lactate FiO2 Blood Gas Comments Crit Value Called To Crit Value Called By Crit Value Read Back Blood Gas Notified Time Potassium 4.3 Carbon Dioxide 22 Anion Gap 16 BUN 73 H Creatinine 1.8 H Est GFR ( Amer) 43 Est GFR (Non-Af Amer) 36 POC Glucose (mg/dL) Random Glucose 95 Lactic Acid Calcium 8.4 Total Bilirubin AST ALT Alkaline Phosphatase Troponin I Total Protein Albumin Globulin Albumin/Globulin Ratio Amylase Lipase Venous Blood Potassium Urine Color Urine Clarity Urine pH Ur Specific [place] Urine Protein Urine Glucose (UA) Urine Ketones Urine Blood Urine Nitrate Urine Bilirubin Urine Urobilinogen Ur Leukocyte Esterase Urine RBC (Auto) Urine Microscopic WBC Ur Squamous Epith Cells Blood Type Antibody Screen Crossmatch BBK History Checked Assessment & Plan - Assessment and Plan (Free Text) Assessment: 87 y.o male seen at bedside for bilaterally heel ulceration 2/2 pressure and left anterior ankle abrasion Plan: Patient seen and evaluated at bedside Discussed plan with attending Dr. Frances afebrile, absent leukocytosis (WBC=9.4) Cleansed ulceration with saline solution Dressed with xeroform, 4x4, ABD, and kerlix Patient to wear mulitpodus boots at all times while in bed Explained to the patient the importance of wearing multipodus boots No surgical intervention by podiatry Podiatry will continue to provide local wound care while in house Upon discharge, patient will follow up with his auto repair shop manager within 1 week Thank you for allowing us to take part in patient's care
--- NOTE | 2017-07-14 11:31 | CP.CCUPN ---
CCU Subjective - Physician Review Subjective (Free Text): Alert and awake, agitated and uncooperative at times, finally infused 2 units PRBCs overnight, had more episodes of melena overnight, denies any abdominal pain, no nausea, fevers, chills, dizziness. Other Vitals and I/Os reviewed. ROS: No other pertinent negs or positives on 10+ system review PMSFH: All other Nursing and physician documentation reviewed to date; no new pertinent info noted relevant to current medical problems. LABS: WBC= 9.4 HGB= 8.6 PLTs= 181K Admission lactate= 6.5 at 11AM yesterday, repeated 1.6 at 8PM yesterday. Na= 146 K= 4.3 HCO3=22 CL= 112 BUN/Cr= 73/1.8 BS= 95 IMPRESSION / MAJOR PROBLEMS NOW: 1. UGI Bleed suspected, r/o gastritis / PUD 2. Acute blood loss anemia 3. Azotemia PLAN: 1. EGD findings noted, remains on PPI therapy. 2. Serial HGB, no active bleeding now. 3. IVF hydration. 4. Stable for further mgmt on regular med/surg garcia. CCU Objective - Vital Signs / Intake & Output Vital Signs (Last 4 hours): Vital Signs Temp Pulse Resp BP Pulse Ox 07/14/17 09:40 97.5 F L 66 16 145/67 100 07/14/17 09:25 97.5 F L 70 18 141/60 100 07/14/17 09:06 97.8 F 72 16 174/59 H 98 07/14/17 08:00 98.6 F 70 12 134/64 97 Intake and Output (Last 8hrs): Intake & Output 07/13/17 07/14/17 07/14/17 22:59 06:59 14:59 Intake Total 20 320 100 Output Total 200 190 Balance -180 130 100 Intake: IV 100 Oral 20 Blood Product 320 Output: Urine 200 190 Urine, Voided 200 190 Other: # Bowel Movements 1 - Physical Exam Head: Positive for: Normocephalic Pupils: Positive for: PERRL Extroacular Muscles: Positive for: EOMI Conjunctiva: Positive for: Normal. Negative for: Icteric Mouth: Positive for: Dry Neck: Positive for: Normal Range of Motion. Negative for: JVD Respiratory/Chest: Positive for: Good Air Exchange, Decreased Breath Sounds. Negative for: Wheezes Cardiovascular: Positive for: Regular Rate and Rhythm. Negative for: Murmurs, Rub Abdomen: Positive for: Normal Bowel Sounds. Negative for: Tenderness, Distention Upper Extremity: Negative for: Cyanosis Lower Extremity: Positive for: NORMAL PULSES. Negative for: Edema, CALF TENDERNESS, Cyanosis Neurological: Positive for: Motor Func Grossly Intact, Normal Sensory Function Skin: Positive for: Warm, Dry. Negative for: Rashes Psychiatric: Positive for: Alert, Oriented x 3 - Medications Active Medications: Active Medications Generic Name Dose Route Start Last Admin Trade Name Freq PRN Reason Stop Dose Admin Pantoprazole Sodium 40 mg/ 100 mls @ 20 mls/hr 07/13/17 11:45 07/14/17 05:27 Sodium Chloride IVPB 20 mls/hr Q5H DEMETRIO Administration 8 MG/HR - Patient Studies Lab Studies: Microbiology Studies 07/13/17 13:07 Urine Culture - Final Urine <10,000 CFU/ML. MULTIPLE SPECIES. PROBABLE CONTAMINATION. Lab Studies 07/14/17 07/14/17 07/13/17 Range/Units 04:20 04:20 20:00 WBC 9.4 (4.8-10.8) K/uL RBC 2.84 L (4.40-5.90) Mil/uL Hgb 8.6 L (12.0-18.0) g/dL Hct 25.1 L (35.0-51.0) % MCV 88.2 (80.0-94.0) fl MCH 30.3 (27.0-31.0) pg MCHC 34.3 (33.0-37.0) g/dL RDW 14.5 (11.5-14.5) % Plt Count 181 (130-400) K/uL Neutrophils % (Manual) (42-75) % Band Neutrophils % (0-2) % Lymphocytes % (Manual) (20-50) % Monocytes % (Manual) (0-10) % Platelet Estimate (NORMAL) Large Platelets Hypochromasia (manual) Anisocytosis (manual) Tear Drop Cells Ovalocytes Gisell Cells Sodium 146 (132-148) mmol/l Potassium 4.3 (3.6-5.0) MMOL/L Chloride 112 H (98-107) mmol/L Carbon Dioxide 22 (22-30) mmol/L Anion Gap 16 (10-20) BUN 73 H (9-20) mg/dl Creatinine 1.8 H (0.8-1.5) mg/dl Est GFR ( Amer) 43 Est GFR (Non-Af Amer) 36 POC Glucose (mg/dL) (65-110) mg/dL Random Glucose 95 (75-110) mg/dL Lactic Acid 1.6 (0.7-2.1) MMOL/L Calcium 8.4 (8.4-10.2) mg/dL Total Bilirubin (0.2-1.3) mg/dl AST (17-59) U/L ALT (21-72) U/L Alkaline Phosphatase (38-126) U/L Troponin I (0.00-0.120) ng/mL Total Protein (6.3-8.2) G/DL Albumin (3.5-5.0) g/dL Globulin (2.2-3.9) gm/dL Albumin/Globulin Ratio (1.0-2.1) Amylase (30-110) U/L Lipase (23-300) U/L Urine Color (YELLOW) Urine Clarity (Clear) Urine pH (5.0-8.0) Ur Specific [place] (1.003-1.030) Urine Protein (NEGATIVE) mg/dL Urine Glucose (UA) (Normal) mg/dL Urine Ketones (NEGATIVE) mg/dL Urine Blood (NEGATIVE) Urine Nitrate (NEGATIVE) Urine Bilirubin (NEGATIVE) Urine Urobilinogen (0.2-1.0) mg/dL Ur Leukocyte Esterase (Negative) Nidhi/uL Urine RBC (Auto) (0-3) /hpf Urine Microscopic WBC (0-5) /hpf Ur Squamous Epith Cells (0-5) /hpf Blood Type Antibody Screen Crossmatch BBK History Checked 07/13/17 07/13/17 07/13/17 Range/Units 13:07 11:02 11:02 WBC (4.8-10.8) K/uL RBC (4.40-5.90) Mil/uL Hgb (12.0-18.0) g/dL Hct (35.0-51.0) % MCV (80.0-94.0) fl MCH (27.0-31.0) pg MCHC (33.0-37.0) g/dL RDW (11.5-14.5) % Plt Count (130-400) K/uL Neutrophils % (Manual) (42-75) % Band Neutrophils % (0-2) % Lymphocytes % (Manual) (20-50) % Monocytes % (Manual) (0-10) % Platelet Estimate (NORMAL) Large Platelets Hypochromasia (manual) Anisocytosis (manual) Tear Drop Cells Ovalocytes [place] Cells Sodium (132-148) mmol/l Potassium (3.6-5.0) MMOL/L Chloride (98-107) mmol/L Carbon Dioxide (22-30) mmol/L Anion Gap (10-20) BUN (9-20) mg/dl Creatinine (0.8-1.5) mg/dl Est GFR ( Amer) Est GFR (Non-Af Amer) POC Glucose (mg/dL) (65-110) mg/dL Random Glucose (75-110) mg/dL Lactic Acid 6.6 H* (0.7-2.1) MMOL/L Calcium (8.4-10.2) mg/dL Total Bilirubin (0.2-1.3) mg/dl AST (17-59) U/L ALT (21-72) U/L Alkaline Phosphatase (38-126) U/L Troponin I (0.00-0.120) ng/mL Total Protein (6.3-8.2) G/DL Albumin (3.5-5.0) g/dL Globulin (2.2-3.9) gm/dL Albumin/Globulin Ratio (1.0-2.1) Amylase (30-110) U/L Lipase (23-300) U/L Urine Color Yellow (YELLOW) Urine Clarity Slighty-cloudy (Clear) Urine pH 5.0 (5.0-8.0) Ur Specific [place] 1.015 (1.003-1.030) Urine Protein Negative (NEGATIVE) mg/dL Urine Glucose (UA) Neg (Normal) mg/dL Urine Ketones Negative (NEGATIVE) mg/dL Urine Blood Moderate (NEGATIVE) Urine Nitrate Negative (NEGATIVE) Urine Bilirubin Negative (NEGATIVE) Urine Urobilinogen 0.2-1.0 (0.2-1.0) mg/dL Ur Leukocyte Esterase Small (Negative) Nidhi/uL Urine RBC (Auto) 3 (0-3) /hpf Urine Microscopic WBC 11 H (0-5) /hpf Ur Squamous Epith Cells < 1 (0-5) /hpf Blood Type A POSITIVE Antibody Screen Negative Crossmatch See Detail BBK History Checked Patient has bt 07/13/17 07/13/17 07/13/17 Range/Units 11:02 11:02 10:57 WBC (4.8-10.8) K/uL RBC (4.40-5.90) Mil/uL Hgb (12.0-18.0) g/dL Hct (35.0-51.0) % MCV (80.0-94.0) fl MCH (27.0-31.0) pg MCHC (33.0-37.0) g/dL RDW (11.5-14.5) % Plt Count (130-400) K/uL Neutrophils % (Manual) 82 H (42-75) % Band Neutrophils % 5 H (0-2) % Lymphocytes % (Manual) 9 L (20-50) % Monocytes % (Manual) 4 (0-10) % Platelet Estimate Normal (NORMAL) Large Platelets Present Hypochromasia (manual) Moderate Anisocytosis (manual) Slight Tear Drop Cells Slight Ovalocytes Slight [place] Cells Slight Sodium 141 (132-148) mmol/l Potassium 5.2 H (3.6-5.0) MMOL/L Chloride 105 (98-107) mmol/L Carbon Dioxide 16 L (22-30) mmol/L Anion Gap 25 H (10-20) BUN 65 H (9-20) mg/dl Creatinine 1.9 H (0.8-1.5) mg/dl Est GFR ( Amer) 41 Est GFR (Non-Af Amer) 34 POC Glucose (mg/dL) 190 H (65-110) mg/dL Random Glucose 168 H (75-110) mg/dL Lactic Acid (0.7-2.1) MMOL/L Calcium 8.1 L (8.4-10.2) mg/dL Total Bilirubin 0.4 (0.2-1.3) mg/dl AST 21 (17-59) U/L ALT 25 (21-72) U/L Alkaline Phosphatase 76 (38-126) U/L Troponin I 0.0170 (0.00-0.120) ng/mL Total Protein 6.4 (6.3-8.2) G/DL Albumin 3.1 L D (3.5-5.0) g/dL Globulin 3.3 (2.2-3.9) gm/dL Albumin/Globulin Ratio 0.9 L (1.0-2.1) Amylase 99 (30-110) U/L Lipase 122 (23-300) U/L Urine Color (YELLOW) Urine Clarity (Clear) Urine pH (5.0-8.0) Ur Specific [place] (1.003-1.030) Urine Protein (NEGATIVE) mg/dL Urine Glucose (UA) (Normal) mg/dL Urine Ketones (NEGATIVE) mg/dL Urine Blood (NEGATIVE) Urine Nitrate (NEGATIVE) Urine Bilirubin (NEGATIVE) Urine Urobilinogen (0.2-1.0) mg/dL Ur Leukocyte Esterase (Negative) Nidhi/uL Urine RBC (Auto) (0-3) /hpf Urine Microscopic WBC (0-5) /hpf Ur Squamous Epith Cells (0-5) /hpf Blood Type Antibody Screen Crossmatch BBK History Checked Laboratory Results - last 24 hr 07/13/17 07/13/17 07/13/17 10:57 11:02 11:02 WBC RBC Hgb Hct MCV MCH MCHC RDW Plt Count Neutrophils % (Manual) 82 H Band Neutrophils % 5 H Lymphocytes % (Manual) 9 L Monocytes % (Manual) 4 Platelet Estimate Normal Large Platelets Present Hypochromasia (manual) Moderate Anisocytosis (manual) Slight Tear Drop Cells Slight Ovalocytes Slight Gisell Cells Slight Sodium 141 Potassium 5.2 H Chloride 105 Carbon Dioxide 16 L Anion Gap 25 H BUN 65 H Creatinine 1.9 H Est GFR ( Amer) 41 Est GFR (Non-Af Amer) 34 POC Glucose (mg/dL) 190 H Random Glucose 168 H Lactic Acid Calcium 8.1 L Total Bilirubin 0.4 AST 21 ALT 25 Alkaline Phosphatase 76 Troponin I 0.0170 Total Protein 6.4 Albumin 3.1 L D Globulin 3.3 Albumin/Globulin Ratio 0.9 L Amylase 99 Lipase 122 Urine Color Urine Clarity Urine pH Ur Specific [place] Urine Protein Urine Glucose (UA) Urine Ketones Urine Blood Urine Nitrate Urine Bilirubin Urine Urobilinogen Ur Leukocyte Esterase Urine RBC (Auto) Urine Microscopic WBC Ur Squamous Epith Cells Blood Type Antibody Screen Crossmatch BBK History Checked 07/13/17 07/13/17 07/13/17 11:02 11:02 13:07 WBC RBC Hgb Hct MCV MCH MCHC RDW Plt Count Neutrophils % (Manual) Band Neutrophils % Lymphocytes % (Manual) Monocytes % (Manual) Platelet Estimate Large Platelets Hypochromasia (manual) Anisocytosis (manual) Tear Drop Cells Ovalocytes [place] Cells Sodium Potassium Chloride Carbon Dioxide Anion Gap BUN Creatinine Est GFR ( Amer) Est GFR (Non-Af Amer) POC Glucose (mg/dL) Random Glucose Lactic Acid 6.6 H* Calcium Total Bilirubin AST ALT Alkaline Phosphatase Troponin I Total Protein Albumin Globulin Albumin/Globulin Ratio Amylase Lipase Urine Color Yellow Urine Clarity Slighty-cloudy Urine pH 5.0 Ur Specific [place] 1.015 Urine Protein Negative Urine Glucose (UA) Neg Urine Ketones Negative Urine Blood Moderate Urine Nitrate Negative Urine Bilirubin Negative Urine Urobilinogen 0.2-1.0 Ur Leukocyte Esterase Small Urine RBC (Auto) 3 Urine Microscopic WBC 11 H Ur Squamous Epith Cells < 1 Blood Type A POSITIVE Antibody Screen Negative Crossmatch See Detail BBK History Checked Patient has bt 07/13/17 07/14/17 07/14/17 20:00 04:20 04:20 WBC 9.4 RBC 2.84 L Hgb 8.6 L Hct 25.1 L MCV 88.2 MCH 30.3 MCHC 34.3 RDW 14.5 Plt Count 181 Neutrophils % (Manual) Band Neutrophils % Lymphocytes % (Manual) Monocytes % (Manual) Platelet Estimate Large Platelets Hypochromasia (manual) Anisocytosis (manual) Tear Drop Cells Ovalocytes Gisell Cells Sodium 146 Potassium 4.3 Chloride 112 H Carbon Dioxide 22 Anion Gap 16 BUN 73 H Creatinine 1.8 H Est GFR ( Amer) 43 Est GFR (Non-Af Amer) 36 POC Glucose (mg/dL) Random Glucose 95 Lactic Acid 1.6 Calcium 8.4 Total Bilirubin AST ALT Alkaline Phosphatase Troponin I Total Protein Albumin Globulin Albumin/Globulin Ratio Amylase Lipase Urine Color Urine Clarity Urine pH Ur Specific [place] Urine Protein Urine Glucose (UA) Urine Ketones Urine Blood Urine Nitrate Urine Bilirubin Urine Urobilinogen Ur Leukocyte Esterase Urine RBC (Auto) Urine Microscopic WBC Ur Squamous Epith Cells Blood Type Antibody Screen Crossmatch BBK History Checked Fingerstick Blood Sugar Results: 190 Critical Care Progress Note - Nutrition Nutrition: Nutrition Category Date Time Status Liquid Diet [DIET] Diets 07/14/17 Breakfast Active
--- NOTE | 2017-07-14 20:40 | CP.PCM.PN ---
Subjective - Date & Time of Evaluation Date of Evaluation: 07/14/17 Time of Evaluation: 19:20 - Subjective Subjective: Awake, confused, unable to give history Appears comfortable Objective - Vital Signs/Intake and Output Vital Signs (last 24 hours): Temp Pulse Resp BP Pulse Ox 97.9 F 61 12 166/59 H 97 07/14/17 16:00 07/14/17 16:00 07/14/17 16:00 07/14/17 16:00 07/14/17 12:00 Intake and Output: 07/14/17 07/15/17 18:59 06:59 Intake Total 100 Balance 100 - Medications Medications: Current Medications Pantoprazole Sodium (Protonix Inj) 40 mg IVP Q12 DEMETRIO - Labs Labs: 07/14/17 04:20 07/14/17 04:20 - Constitutional Appears: Well, No Acute Distress - Head Exam Head Exam: ATRAUMATIC - Respiratory Exam Respiratory Exam: Clear to Ausculation Bilateral, NORMAL BREATHING PATTERN - Cardiovascular Exam Cardiovascular Exam: REGULAR RHYTHM, +S1, +S2 - GI/Abdominal Exam GI & Abdominal Exam: Soft, Normal Bowel Sounds - Neurological Exam Neurological Exam: Altered, Awake - Skin Skin Exam: Normal Color, Warm Assessment and Plan (1) GI bleed Assessment & Plan: S/p upper endoscopy toady Found gastric ulcer with clot continue PPI monitor for drop in hgb GI on board Status: Acute (2) Anemia Assessment & Plan: S/p transfusion of prbc Hgb improved Continue to monitor labs Status: Acute (3) CKD (chronic kidney disease) Status: Acute (4) Dementia Status: Acute (5) Hyperkalemia Assessment & Plan: corrected continue to monitor labs Status: Acute
[2017-07-15 11:33] LABS: CALCIUM 8.8 mg/dL (8.4-10.2)
[2017-07-15 11:38] LABS: HEMOGLOBIN 8.1 g/dL (12.0-18.0); MEAN CELL VOLUME 89.3 fl (80.0-94.0); MEAN CORPUSCULAR HEMOGLOBIN 30.1 pg (27.0-31.0); MEAN CORPUSCULAR HGB CONC 33.8 g/dL (33.0-37.0); RBC 2.69 Mil/uL (4.40-5.90); RED CELL DISTRIBUTION WIDTH 15.1 % (11.5-14.5); WHITE BLOOD COUNT 5.9 K/uL (4.8-10.8)
--- NOTE | 2017-07-15 14:58 | CP.PCM.PN ---
Subjective - Date & Time of Evaluation Date of Evaluation: 07/15/17 Time of Evaluation: 14:54 - Subjective Subjective: Patient without evidence of ongoing bleeding. No GI complaints. Objective - Vital Signs/Intake and Output Vital Signs (last 24 hours): Temp Pulse Resp BP Pulse Ox 97.4 F L 65 18 149/53 L 98 07/15/17 08:57 07/15/17 12:16 07/15/17 08:57 07/15/17 12:17 07/15/17 08:57 - Medications Medications: Current Medications Acetaminophen (Tylenol 325mg Tab) 650 mg PO Q4 PRN PRN Reason: Pain, Mild (1-3) Carvedilol (Coreg) 6.25 mg PO DAILY [facility] Last Admin: 07/15/17 12:16 Dose: 6.25 mg Collagenase (Santyl) 1 applic TOP BID [facility] Furosemide (Lasix) 40 mg PO DAILY [facility] Last Admin: 07/15/17 12:17 Dose: Not Given Mirtazapine (Remeron) 15 mg PO HS DEMETRIO Pantoprazole Sodium (Protonix Inj) 40 mg IVP Q12 [facility] Last Admin: 07/15/17 12:18 Dose: 40 mg Tamsulosin HCl (Flomax) 0.4 mg PO DAILY [facility] Last Admin: 07/15/17 12:17 Dose: 0.4 mg - Labs Labs: 07/15/17 10:30 07/15/17 10:30 - Head Exam Head Exam: ATRAUMATIC - Eye Exam Eye Exam: Normal appearance - Neck Exam Neck Exam: Full ROM - Respiratory Exam Respiratory Exam: Clear to Ausculation Bilateral - Cardiovascular Exam Cardiovascular Exam: REGULAR RHYTHM - GI/Abdominal Exam GI & Abdominal Exam: Soft, Normal Bowel Sounds. absent: Tenderness - Extremities Exam Extremities Exam: Normal Inspection Assessment and Plan (1) Upper GI bleed Assessment & Plan: On IV pantoprazole and no evidence of further bleeding. Hgb 8.1, no additional transfusion needed. Continue IV pantoprazole BID, diet advanced to solids, Monitor clinically. Status: Acute
[2017-07-15] MEDS: Santyl Collagenase OINTMENT TOP SCH ×2 (17:47→17:48)
--- NOTE | 2017-07-15 23:20 | CP.PCM.PN ---
Subjective - Date & Time of Evaluation Date of Evaluation: 07/15/17 Time of Evaluation: 18:00 - Subjective Subjective: Appears comfortable in bed, no complains No further signs of GI bleed Objective - Vital Signs/Intake and Output Vital Signs (last 24 hours): Temp Pulse Resp BP Pulse Ox 97.8 F 59 L 17 125/58 L 97 07/15/17 16:15 07/15/17 16:15 07/15/17 16:15 07/15/17 16:15 07/15/17 16:15 - Medications Medications: Current Medications Acetaminophen (Tylenol 325mg Tab) 650 mg PO Q4 PRN PRN Reason: Pain, Mild (1-3) Carvedilol (Coreg) 6.25 mg PO DAILY [facility] Last Admin: 07/15/17 12:16 Dose: 6.25 mg Collagenase (Santyl) 1 applic TOP BID [facility] Last Admin: 07/15/17 17:48 Dose: 1 unit Furosemide (Lasix) 40 mg PO DAILY [facility] Last Admin: 07/15/17 12:17 Dose: Not Given Mirtazapine (Remeron) 15 mg PO HS [facility] Last Admin: 07/15/17 21:33 Dose: 15 mg Pantoprazole Sodium (Protonix Inj) 40 mg IVP Q12 [facility] Last Admin: 07/15/17 21:32 Dose: 40 mg Tamsulosin HCl (Flomax) 0.4 mg PO DAILY [facility] Last Admin: 07/15/17 12:17 Dose: 0.4 mg - Labs Labs: 07/15/17 10:30 07/15/17 10:30 - Constitutional Appears: Well, No Acute Distress - Head Exam Head Exam: ATRAUMATIC - Respiratory Exam Respiratory Exam: Clear to Ausculation Bilateral, NORMAL BREATHING PATTERN - Cardiovascular Exam Cardiovascular Exam: REGULAR RHYTHM, +S1, +S2 - GI/Abdominal Exam GI & Abdominal Exam: Soft, Normal Bowel Sounds - Neurological Exam Neurological Exam: Altered, Awake - Skin Skin Exam: Normal Color, Warm Assessment and Plan (1) GI bleed Assessment & Plan: No further signs of GI bleed Hgb stable Continue PPI Diet advanced Continue to monitor Status: Acute (2) Anemia Assessment & Plan: Hgb stable at 8.1 today continue to monitor Status: Acute (3) CKD (chronic kidney disease) Assessment & Plan: Continue to monitor Status: Acute (4) Dementia Assessment & Plan: on medications Status: Acute (5) Hyperkalemia Assessment & Plan: resolved Status: Acute
[2017-07-16 00:59] VITALS: RESP 18; O2SAT 98
[2017-07-16 07:38] LABS: CALCIUM 8.7 mg/dL (8.4-10.2)
[2017-07-16 07:39] LABS: HEMOGLOBIN 8.5 g/dL (12.0-18.0); MEAN CELL VOLUME 88.9 fl (80.0-94.0); MEAN CORPUSCULAR HEMOGLOBIN 30.3 pg (27.0-31.0); RBC 2.8 Mil/uL (4.40-5.90); RED CELL DISTRIBUTION WIDTH 15.1 % (11.5-14.5); WHITE BLOOD COUNT 5.6 K/uL (4.8-10.8)
[2017-07-16 08:07] VITALS: BP 155/55; TEMP 97.7
[2017-07-16] MEDS: Santyl Collagenase OINTMENT TOP SCH (08:41)
[2017-07-16 11:58] VITALS: PULSE 57
--- NOTE | 2017-07-17 00:31 | CP.PCM.DIS ---
Provider - Provider Date of Admission: 07/13/17 11:45 Attending physician: Florencio Sethi MD Consults: 07/13/17 17:45 Nursing Referral for Wound Care Routine Comment: Physician Instructions: Reason For Exam: new admit Time Spent in preparation of Discharge (in minutes): 25 Diagnosis - Discharge Diagnosis (1) GI bleed Status: Acute (2) Anemia Status: Acute (3) CKD (chronic kidney disease) Status: Acute (4) Dementia Status: Acute (5) Hyperkalemia Status: Acute Priority: High Hospital Course - Lab Results Lab Results: Micro Results 07/13/17 11:50 Blood Blood Culture - Preliminary NO GROWTH AFTER 3 DAYS 07/13/17 11:10 Blood Blood Culture - Preliminary NO GROWTH AFTER 3 DAYS 07/14/17 08:17 Naris MRSA Culture (Admit) - Final MRSA NOT DETECTED 07/13/17 21:14 Nose MRSA Culture (Admit) - Final MRSA NOT DETECTED 07/13/17 13:07 Urine Urine Culture - Final <10,000 CFU/ML. MULTIPLE SPECIES. PROBABLE CONTAMINATION. Most Recent Lab Values WBC 5.6 K/uL (4.8-10.8) 07/16/17 05:30 RBC 2.80 Mil/uL (4.40-5.90) L 07/16/17 05:30 Hgb 8.5 g/dL (12.0-18.0) L 07/16/17 05:30 Hct 24.9 % (35.0-51.0) L 07/16/17 05:30 MCV 88.9 fl (80.0-94.0) 07/16/17 05:30 MCH 30.3 pg (27.0-31.0) 07/16/17 05:30 MCHC 34.0 g/dL (33.0-37.0) 07/16/17 05:30 RDW 15.1 % (11.5-14.5) H 07/16/17 05:30 Plt Count 189 K/uL (130-400) 07/16/17 05:30 MPV 8.8 fl (7.2-11.7) 07/13/17 11:02 Neut % (Auto) 85.8 % (50.0-75.0) H 07/13/17 11:02 Lymph % (Auto) 9.5 % (20.0-40.0) L 07/13/17 11:02 [place] % (Auto) 4.0 % (0.0-10.0) 07/13/17 11:02 Eos % (Auto) 0.4 % (0.0-4.0) 07/13/17 11:02 Baso % (Auto) 0.3 % (0.0-2.0) 07/13/17 11:02 Neut # (Auto) 11.5 K/uL (1.8-7.0) H 07/13/17 11:02 Lymph # (Auto) 1.3 K/uL (1.0-4.3) 07/13/17 11:02 [place] # (Auto) 0.5 K/uL (0.0-0.8) 07/13/17 11:02 Eos # (Auto) 0.0 K/uL (0.0-0.7) 07/13/17 11:02 Baso # (Auto) 0.0 K/uL (0.0-0.2) 07/13/17 11:02 Neutrophils % (Manual) 82 % (42-75) H 07/13/17 11:02 Band Neutrophils % 5 % (0-2) H 07/13/17 11:02 Lymphocytes % (Manual) 9 % (20-50) L 07/13/17 11:02 Monocytes % (Manual) 4 % (0-10) 07/13/17 11:02 Platelet Estimate Normal (NORMAL) 07/13/17 11:02 Large Platelets Present 07/13/17 11:02 Hypochromasia (manual) Moderate 07/13/17 11:02 Anisocytosis (manual) Slight 07/13/17 11:02 Tear Drop Cells Slight 07/13/17 11:02 Ovalocytes Slight 07/13/17 11:02 Gisell Cells Slight 07/13/17 11:02 pO2 15 mm/Hg (30-55) L 07/13/17 10:59 VBG pH 7.31 (7.32-7.43) L 07/13/17 10:59 VBG pCO2 38 mmHg (40-60) L 07/13/17 10:59 VBG HCO3 18.7 mmol/L 07/13/17 10:59 VBG Total CO2 20.3 mmol/L (22-28) L 07/13/17 10:59 VBG O2 Sat (Calc) 26.9 % (40-65) L 07/13/17 10:59 VBG Base Excess -6.6 mmol/L (0.0-2.0) L 07/13/17 10:59 VBG Potassium 5.2 mmol/L (3.6-5.2) 07/13/17 10:59 Sodium 138.0 mmol/L (132-148) 07/13/17 10:59 Chloride 107.0 mmol/L (98-107) 07/13/17 10:59 Glucose 180 mg/dL (75-110) H 07/13/17 10:59 Lactate 6.5 mmol/L (0.7-2.1) H* 07/13/17 10:59 FiO2 21.0 % 07/13/17 10:59 Blood Gas Comments Vbg 07/13/17 10:59 Crit Value Called To Adore alarcon r.n. 07/13/17 10:59 Crit Value Called By Adri 07/13/17 10:59 Crit Value Read Back Y 07/13/17 10:59 Blood Gas Notified Time 1108 07/13/17 10:59 Sodium 145 mmol/l (132-148) 07/16/17 05:30 Potassium 4.0 MMOL/L (3.6-5.0) 07/16/17 05:30 Chloride 109 mmol/L (98-107) H 07/16/17 05:30 Carbon Dioxide 24 mmol/L (22-30) 07/16/17 05:30 Anion Gap 16 (10-20) 07/16/17 05:30 BUN 29 mg/dl (9-20) H 07/16/17 05:30 Creatinine 1.6 mg/dl (0.8-1.5) H 07/16/17 05:30 Est GFR ( Amer) 50 07/16/17 05:30 Est GFR (Non-Af Amer) 41 07/16/17 05:30 POC Glucose (mg/dL) 190 mg/dL (65-110) H 07/13/17 10:57 Random Glucose 105 mg/dL (75-110) 07/16/17 05:30 Lactic Acid 1.6 MMOL/L (0.7-2.1) 07/13/17 20:00 Calcium 8.7 mg/dL (8.4-10.2) 07/16/17 05:30 Total Bilirubin 0.4 mg/dl (0.2-1.3) 07/13/17 11:02 AST 21 U/L (17-59) 07/13/17 11:02 ALT 25 U/L (21-72) 07/13/17 11:02 Alkaline Phosphatase 76 U/L (38-126) 07/13/17 11:02 Troponin I 0.0170 ng/mL (0.00-0.120) 07/13/17 11:02 Total Protein 6.4 G/DL (6.3-8.2) 07/13/17 11:02 Albumin 3.1 g/dL (3.5-5.0) L D 07/13/17 11:02 Globulin 3.3 gm/dL (2.2-3.9) 07/13/17 11:02 Albumin/Globulin Ratio 0.9 (1.0-2.1) L 07/13/17 11:02 Amylase 99 U/L (30-110) 07/13/17 11:02 Lipase 122 U/L (23-300) 07/13/17 11:02 Venous Blood Potassium 5.2 mmol/L (3.6-5.2) 07/13/17 10:59 Urine Color Yellow (YELLOW) 07/13/17 13:07 Urine Clarity Slighty-cloudy (Clear) 07/13/17 13:07 Urine pH 5.0 (5.0-8.0) 07/13/17 13:07 Ur Specific [place] 1.015 (1.003-1.030) 07/13/17 13:07 Urine Protein Negative mg/dL (NEGATIVE) 07/13/17 13:07 Urine Glucose (UA) Neg mg/dL (Normal) 07/13/17 13:07 Urine Ketones Negative mg/dL (NEGATIVE) 07/13/17 13:07 Urine Blood Moderate (NEGATIVE) 07/13/17 13:07 Urine Nitrate Negative (NEGATIVE) 07/13/17 13:07 Urine Bilirubin Negative (NEGATIVE) 07/13/17 13:07 Urine Urobilinogen 0.2-1.0 mg/dL (0.2-1.0) 07/13/17 13:07 Ur Leukocyte Esterase Small Nidhi/uL (Negative) 07/13/17 13:07 Urine RBC (Auto) 3 /hpf (0-3) 07/13/17 13:07 Urine Microscopic WBC 11 /hpf (0-5) H 07/13/17 13:07 Ur Squamous Epith Cells < 1 /hpf (0-5) 07/13/17 13:07 Blood Type A POSITIVE 07/13/17 11:02 Antibody Screen Negative 07/13/17 11:02 Crossmatch See Detail 07/13/17 11:02 BBK History Checked Patient has bt 07/13/17 11:02 Discharge Exam - Head Exam Head Exam: ATRAUMATIC Discharge Plan - Discharge Medications Prescriptions: Pantoprazole Sodium [Protonix] 40 mg PO BID #28 tablet.dr - Follow Up Plan Condition: CRITICAL Disposition: REHAB FACILITY/REHAB UNIT Instructions: Gastrointestinal Bleeding Additional Instructions: FOLLOW UP PODIATRY DR. CARRILLO IN ONE WEEK FOLLOW GI DR. MUHAMMAD IN ONE WEEK FOR REPEAR ENDOSCOPY. MONITOR HEMOGLOBIN. 8.5 OF 07/16 wOUND CARE 2X/DAY- CLEANSE WITH SALINE, XEROFORM, 4X4, ABD AND COLE. Referrals: Barrie Carrillo MD [Staff Provider] - Julio C Muhammad MD [Staff Provider] -
== END 2017-07-16 16:23 | DRG 377 ==
LOC: H.ER 10:14 → H.ERHOLD 11:45 → H.ICU/CCU 15:03 → H.MEDSURG1 07-14 18:10
PROVIDERS: ADMIT Internal Medicine; ATTEND Internal Medicine
PROC: 30233N1 Transfusion of Nonautologous Red Blood Cells into Peripheral Vein, Percutaneous Approach (ICD-10-PCS; 2017-07-13)
PROC: 0DB68ZX Excision of Stomach, Via Natural or Artificial Opening Endoscopic, Diagnostic (ICD-10-PCS; principal; 2017-07-14 09:00)
DX: K25.0 Acute gastric ulcer with hemorrhage (principal); R57.1 Hypovolemic shock; D62 Acute posthemorrhagic anemia; D63.1 Anemia in chronic kidney disease; D72.829 Elevated white blood cell count, unspecified; E78.00 Pure hypercholesterolemia, unspecified; E87.5 Hyperkalemia; F03.90 Unspecified dementia, unspecified severity, without behavioral disturbance, psychotic disturbance, mood disturbance, and anxiety; I12.9 Hypertensive chronic kidney disease with stage 1 through stage 4 chronic kidney disease, or unspecified chronic kidney disease; K59.00 Constipation, unspecified; L89.622 Pressure ulcer of left heel, stage 2; L89.612 Pressure ulcer of right heel, stage 2; S90.512A Abrasion, left ankle, initial encounter; X58.XXXA Exposure to other specified factors, initial encounter; Y93.9 Activity, unspecified; Y92.9 Unspecified place or not applicable; Z79.02 Long term (current) use of antithrombotics/antiplatelets; Z86.73 Personal history of transient ischemic attack (TIA), and cerebral infarction without residual deficits; Z90.49 Acquired absence of other specified parts of digestive tract; M19.90 Unspecified osteoarthritis, unspecified site; K44.9 Diaphragmatic hernia without obstruction or gangrene; N18.3 Chronic kidney disease, stage 3 (moderate)

== ENCOUNTER 2017-07-19 15:42 | Emergency (ER) | payer MEDICARE, OTHER ==
[2017-07-19 15:42] VITALS: BMI 25.2
[2017-07-19] MEDS ORDERED: Sodium Chloride 0.9% 1,000 ML IV STA (16:03)
--- NOTE | 2017-07-19 16:26 | ED PDOC ---
HPI: General Adult Time Seen by Provider: 07/19/17 15:52 Chief Complaint (Nursing): Abnormal Labs Additional Complaint(s): 87 y/o male with past medical history of anemia, GI bleed and chronic kidney failure presents to the ED for evaluation of abnormal labs. Patient was [facility] from [facility] after noting his Hb count is 7.8mg/dL. Denies abdominal pain, vomiting, diarrhea, blood in stool, melena, weakens, dizziness or any further medical complaints. PMD: Renee Izaguirre MD Past Medical History Reviewed: Historical Data, Nursing Documentation, Vital Signs Vital Signs: Last Vital Signs Temp 98.3 F 07/19/17 15:47 Pulse 66 07/19/17 15:47 Resp 20 07/19/17 15:47 BP 189/64 H 07/19/17 15:47 Pulse Ox 98 07/19/17 16:34 - Medical History PMH: Anemia, Arthritis, CVA (with R deficits), Dementia, HTN, Hypercholesterolemia, TIA Denies: HIV Other PMH: GI bleed, Chronic renal failure - Surgical History Surgical History: Cholecystectomy - Family History Family History: States: Unknown Family Hx - Social History Current smoker - smoking cessation education provided: No (Never smoked) Alcohol: None Drugs: Denies - Home Medications Home Medications: Ambulatory Orders Medication Instructions Recorded Carvedilol [Coreg] 6.25 mg PO DAILY 04/09/17 Acetaminophen [Tylenol 325mg tab] 650 mg PO Q4 PRN 07/13/17 Acetaminophen [Tylenol 325mg tab] 650 mg PO Q4 PRN 07/13/17 Collagenase [Santyl] 1 appl TOP BID 07/13/17 Mirtazapine [Remeron] 15 mg PO HS 07/13/17 Tamsulosin [Flomax] 0.4 mg PO DAILY 07/13/17 Pantoprazole Sodium [Protonix] 40 mg PO BID #28 tablet. 07/16/17 - Allergies Allergies/Adverse Reactions: Allergies Allergy/AdvReac Type Severity Reaction Status Date / Time No Known Allergies Allergy Verified 07/13/17 10:16 Review of Systems ROS Statement: Except As Marked, All Systems Reviewed And Found Negative (As per HPI, otherwise negative) Constitutional: Positive for: Other (Abnormal Hb count). Negative for: Weakness Gastrointestinal: Negative for: Vomiting, Abdominal Pain, Diarrhea, Melena, Hematochezia Neurological: Negative for: Dizziness Physical Exam - Reviewed Nursing Documentation Reviewed: Yes Vital Signs Reviewed: Yes - Physical Exam Appears: Positive for: Non-toxic, No Acute Distress Head Exam: Positive for: ATRAUMATIC, NORMAL INSPECTION, NORMOCEPHALIC Skin: Positive for: Normal Color, Warm, Dry Eye Exam: Positive for: EOMI, Normal appearance, PERRL ENT: Positive for: Normal ENT Inspection Neck: Positive for: Normal, Painless ROM, Supple Cardiovascular/Chest: Positive for: Regular Rate, Rhythm. Negative for: Murmur Respiratory: Positive for: Normal Breath Sounds. Negative for: Accessory Muscle Use, Respiratory Distress Gastrointestinal/Abdominal: Positive for: Normal Exam, Soft. Negative for: Tenderness Back: Positive for: Normal Inspection Extremity: Positive for: Other (2cm ulcer on right heel(no eryhema or drainage noted); 1cm ulcer on left heel(no eryhema or drainage noted)) Neurologic/Psych: Positive for: Alert, Oriented (x3) - ECG O2 Sat by Pulse Oximetry: 98 (RA) Medical Decision Making Medical Decision Making: Time: 16:02 Initial Impression: Plan: Type and Screen EKG CMP CBC w/ differential Sodium chloride 1L IV Reevaluation Scribe Attestation: Documented by Bell Rowe acting as a scribe for Hernan Arce MD. Scribe Attestation: All medical record entries made by the Scribe were at my direction and personally dictated by me. I have reviewed the chart and agree that the record accurately reflects my personal performance of the history, physical exam, medical decision making, and the department course for this patient. I have also personally directed, reviewed, and agree with the discharge instructions and disposition. Disposition - Clinical Impression Clinical Impression: Anemia - Patient ED Disposition Is Patient to be Admitted: Transfer of Care - Disposition Disposition: Transfer of Care Disposition Time: 16:56 Condition: FAIR Forms: [employer] (Thai) Patient Signed Over To: Pricilla Gamez
--- NOTE | 2017-07-19 17:18 | ED PDOC ---
- Laboratory Results Result Diagrams: 07/19/17 16:40 07/19/17 16:40 - ECG O2 Sat by Pulse Oximetry: 98 (RA) Medical Decision Making Medical Decision Making: Time: 17:00 Patient is signed over to me by Dr. Hernan Arce pending labs and possible blood transfusion. 1900 Labs reviewed. CBC stable and at baseline. Cr stable at baseline. No evidence of bleeding or acute anemia. Patient is stable for discharge. Scribe Attestation: Documented by Bell Rowe acting as a scribe for Pricilla Gamez MD. Scribe Attestation: All medical record entries made by the Scribe were at my direction and personally dictated by me. I have reviewed the chart and agree that the record accurately reflects my personal performance of the history, physical exam, medical decision making, and the department course for this patient. I have also personally directed, reviewed, and agree with the discharge instructions and disposition. Disposition Discussed With : Florencio Tatum Seman Doctor Will See Patient In The: Office Counseled Patient/Family Regarding: Studies Performed, Diagnosis, Need For Followup - Clinical Impression Clinical Impression: Anemia - POA Present On Arrival: None - Disposition Referrals: [facility] [Outside] Florencio Sethi MD [Staff Provider] - Disposition: Other Institution (jail) Disposition Time: 19:00 Condition: GOOD Additional Instructions: Follow up with your PCP in 2-3 days. Instructions: Normocytic Normochromic Anemia
[2017-07-19 17:20] LABS: BASO % 0.4 % (0.0-2.0); EOS # 0.4 K/uL (0.0-0.7); EOS % 6.6 % (0.0-4.0); HEMOGLOBIN 8.6 g/dL (12.0-18.0); LYMPH % 35.2 % (20.0-40.0); MEAN CELL VOLUME 91.9 fl (80.0-94.0); MEAN CORPUSCULAR HEMOGLOBIN 30.5 pg (27.0-31.0); MEAN CORPUSCULAR HGB CONC 33.2 g/dL (33.0-37.0); MEAN PLATELET VOLUME 8.8 fl (7.2-11.7); MONO # 0.6 K/uL (0.0-0.8); NEUT # 2.7 K/uL (1.8-7.0); NEUT % 47.8 % (50.0-75.0); NRBC % 0.1 % (0.0-0.0); RBC 2.81 Mil/uL (4.40-5.90); RED CELL DISTRIBUTION WIDTH 14.7 % (11.5-14.5); WHITE BLOOD COUNT 5.7 K/uL (4.8-10.8)
[2017-07-19 17:33] LABS: ALBUMIN 3.3 g/dL (3.5-5.0); CALCIUM 8.4 mg/dL (8.4-10.2)
[2017-07-19 22:35] VITALS: BP 142/68; PULSE 65; RESP 15; TEMP 98.5
--- NOTE | 2017-07-20 12:25 | CARD ---
APPROVED REPORT EKG Measurement Heart [id number] <Conclusion> Sinus bradycardia with 1st degree AV block Voltage criteria for left ventricular hypertrophy ST & T wave abnormality, consider lateral ischemia Abnormal ECG
[2017-07-21 17:12] VITALS: O2SAT 98
== END 2017-07-19 20:30 | disposition short-term general hospital (02) ==
LOC: H.ER 15:42
DX: D64.9 Anemia, unspecified (principal); E78.00 Pure hypercholesterolemia, unspecified; F03.90 Unspecified dementia, unspecified severity, without behavioral disturbance, psychotic disturbance, mood disturbance, and anxiety; Z86.73 Personal history of transient ischemic attack (TIA), and cerebral infarction without residual deficits
CPT/HCPCS: 80053; 85025; 86850; 86900; 93005; 99282; J7040

== ENCOUNTER 2018-03-22 17:37 | Observation (INO) | payer MEDICARE, OTHER ==
[2018-03-22 17:37] VITALS: BMI 25.2
--- NOTE | 2018-03-22 18:59 | ED PDOC ---
HPI: General Adult Time Seen by Provider: 03/22/18 18:07 Chief Complaint (Nursing): Abnormal Labs Chief Complaint (Provider): Anemia History Per: Patient, Family (daughter, who is also assessment specialist for pt) History/Exam Limitations: no limitations Current Symptoms Are (Timing): Still Present Additional Complaint(s): 87 year old male with hx of chronic anemia/ transfusions presents from [facility] to the ED with daughter for lab results showing he is anemic. As per snf reports, patient is to be transfused and sent back. Patient's only complaint is that he feels tired, otherwise denies chest pain and shortness of breath. DNR/DNI/DNH order. PMD: Renee Izaguirre Past Medical History Reviewed: Historical Data, Nursing Documentation, Vital Signs Vital Signs: Last Vital Signs Temp 97.8 F 03/22/18 17:38 Pulse 68 03/22/18 17:38 Resp 16 03/22/18 17:38 BP 173/58 H 03/22/18 17:38 Pulse Ox 100 03/22/18 17:38 - Medical History PMH: Anemia, Arthritis, CVA (with R deficits), Dementia, HTN, Hypercholesterolemia, TIA Denies: HIV, Chronic Kidney Disease - Surgical History Surgical History: Cholecystectomy - Family History Family History: States: Unknown Family Hx - Living Arrangements Living Arrangements: Alf/Assist Lvng - Social History Current smoker - smoking cessation education provided: No Alcohol: None Drugs: Denies - Home Medications Home Medications: Ambulatory Orders Medication Instructions Recorded Carvedilol [Coreg] 6.25 mg PO DAILY 04/09/17 Mirtazapine [Remeron] 7.5 mg PO HS 07/13/17 Tamsulosin [Flomax] 0.4 mg PO DAILY 07/13/17 Aspirin [[place] Aspirin] 81 mg PO DAILY 03/22/18 Epoetin Inocente [Epogen] 2,000 unit IM MWF 03/22/18 Famotidine [Pepcid] 20 mg PO DAILY 03/22/18 Furosemide [Lasix] 20 mg PO 03/22/18 traMADol [Ultram] 25 mg PO HS 03/22/18 - Allergies Allergies/Adverse Reactions: Allergies Allergy/AdvReac Type Severity Reaction Status Date / Time No Known Allergies Allergy Verified 07/13/17 10:16 Review of Systems ROS Statement: Except As Marked, All Systems Reviewed And Found Negative Constitutional: Positive for: Other (tired; anemic) Cardiovascular: Negative for: Chest Pain Respiratory: Negative for: Shortness of Breath Physical Exam - Reviewed Nursing Documentation Reviewed: Yes Vital Signs Reviewed: Yes - Physical Exam Appears: Positive for: No Acute Distress Head Exam: Positive for: ATRAUMATIC Skin: Positive for: Normal Color, Warm, Dry Eye Exam: Positive for: Normal appearance, EOMI, PERRL ENT: Positive for: Normal ENT Inspection Neck: Positive for: Normal, Painless ROM, Supple Cardiovascular/Chest: Positive for: Regular Rate, Rhythm Respiratory: Positive for: Normal Breath Sounds. Negative for: Respiratory Distress Gastrointestinal/Abdominal: Positive for: Normal Exam, Soft. Negative for: Tenderness Back: Positive for: Normal Inspection Extremity: Positive for: Normal ROM Neurologic/Psych: Positive for: Alert, Oriented (x3) - ECG O2 Sat by Pulse Oximetry: 100 (RA) Pulse Ox Interpretation: Normal Medical Decision Making Medical Decision Making: Time: 1808 Initial Impression: anemia, blood transfusion Initial Plan: --ABO/RH type --Type and screen --CMP --CBC with differential --PTT / PT Scribe Attestation: Documented by Miladis You, acting as a scribe for Livier Nassar MD. Provider Scribe Attestation: All medical record entries made by the Scribe were at my direction and personally dictated by me. I have reviewed the chart and agree that the record accurately reflects my personal performance of the history, physical exam, medical decision making, and the department course for this patient. I have also personally directed, reviewed, and agree with the discharge instructions and disposition. Disposition - Disposition
[2018-03-22 19:09] LABS: BASO % 0.6 % (0.0-2.0); EOS # 0.3 K/uL (0.0-0.7); EOS % 4.2 % (0.0-4.0); LYMPH # 1.2 K/uL (1.0-4.3); LYMPH % 19.8 % (20.0-40.0); MEAN CORPUSCULAR HEMOGLOBIN 19.8 pg (27.0-31.0); MEAN CORPUSCULAR HGB CONC 28.8 g/dL (33.0-37.0); MEAN PLATELET VOLUME 8.5 fl (7.2-11.7); MONO # 0.9 K/uL (0.0-0.8); MONO % 15.2 % (0.0-10.0); NEUT # 3.7 K/uL (1.8-7.0); NEUT % 60.2 % (50.0-75.0); NRBC % 0.1 % (0.0-0.0); RBC 2.91 Mil/uL (4.40-5.90); RED CELL DISTRIBUTION WIDTH 21.2 % (11.5-14.5); WHITE BLOOD COUNT 6.1 K/uL (4.8-10.8)
[2018-03-22 19:22] LABS: ALBUMIN 3.6 g/dL (3.5-5.0); CALCIUM 8.4 mg/dL (8.4-10.2); HEMOGLOBIN 5.8 g/dL (12.0-18.0)
--- NOTE | 2018-03-22 19:49 | ED PDOC ---
- Laboratory Results Result Diagrams: 03/22/18 18:57 03/22/18 18:57 - ECG O2 Sat by Pulse Oximetry: 100 (RA) Medical Decision Making Medical Decision Makin: Patient care endorsed to this provider from Dr. Nassar pending labs and reevalutation. 2019 Labs reviewed and significant for anemia as hemoglobin is 5.8. Patient placed on observation status for packed red blood cell transfusion. Case referred to Yasmany Wang. Scribe Attestation: Documented by Miladis You, acting as a scribe for Denny Recio MD. Provider Scribe Attestation: All medical record entries made by the Scribe were at my direction and personally dictated by me. I have reviewed the chart and agree that the record accurately reflects my personal performance of the history, physical exam, medical decision making, and the department course for this patient. I have also personally directed, reviewed, and agree with the discharge instructions and disposition. Disposition - Clinical Impression Clinical Impression: Anemia - POA Present On Arrival: None - Disposition Disposition: Hospitalized as Observation Patient Disposition Time: 20:20 Condition: FAIR
[2018-03-22 20:30] LABS: INR 1.1; PROTHROMBIN TIME 12.8 Seconds (9.8-13.1)
[2018-03-22 20:32] LABS: PARTIAL THROMBOPLASTIN TIME 34.5 Seconds (25.6-37.1)
[2018-03-23 07:15] LABS: HEMOGLOBIN 7.9 g/dL (12.0-18.0); MEAN CELL VOLUME 71.9 fl (80.0-94.0); MEAN CORPUSCULAR HEMOGLOBIN 22.5 pg (27.0-31.0); MEAN CORPUSCULAR HGB CONC 31.3 g/dL (33.0-37.0); RBC 3.51 Mil/uL (4.40-5.90); WHITE BLOOD COUNT 7.2 K/uL (4.8-10.8)
--- NOTE | 2018-03-23 08:08 | CP.PCM.HP ---
History of Present Illness - History of Present Illness History of Present Illness: pt admitted for acute on chronic anemia of chronic disease. no f/c, n/v/d. calm and cooperative at present s/p 2 units prbc. hgb now 7.9 Present on Admission - Present on Admission Any Indicators Present on Admission: No Past Patient History - Past Medical History & Family History Past Medical History?: Yes - Past Social History Alcohol: None Drugs: Denies - CARDIAC Hx Hypercholesterolemia: Yes Hx Hypertension: Yes - PULMONARY Hx Respiratory Disorders: No - NEUROLOGICAL Hx Dementia: Yes Hx Transient Ischemic Attacks (TIA): Yes - HEENT Hx HEENT Problems: No - RENAL Hx Chronic Kidney Disease: No - ENDOCRINE/METABOLIC Hx Endocrine Disorders: No - HEMATOLOGICAL/ONCOLOGICAL Hx Anemia: Yes Hx Human Immunodeficiency Virus (HIV): No - INTEGUMENTARY Hx Dermatological Problems: No - MUSCULOSKELETAL/RHEUMATOLOGICAL Hx Arthritis: Yes - GASTROINTESTINAL Hx Gastrointestinal Disorders: Yes Other/Comment: Upper GI bleed - GENITOURINARY/GYNECOLOGICAL Hx Genitourinary Disorders: Yes Hx Prostate Problems: Yes (enlargement) - PSYCHIATRIC Hx Psychophysiologic Disorder: Yes Hx Substance Use: No - SURGICAL HISTORY Hx Cholecystectomy: Yes - ANESTHESIA Hx Anesthesia: Yes Hx Anesthesia Reactions: No Hx Malignant Hyperthermia: No Meds Allergies/Adverse Reactions: Allergies Allergy/AdvReac Type Severity Reaction Status Date / Time No Known Allergies Allergy Verified 07/13/17 10:16 Physical Exam - Constitutional Appears: Well, Non-toxic, No Acute Distress, Chronically Ill - Head Exam Head Exam: ATRAUMATIC, NORMAL INSPECTION, NORMOCEPHALIC - Eye Exam Eye Exam: EOMI, Normal appearance, PERRL Pupil Exam: NORMAL ACCOMODATION, PERRL - ENT Exam ENT Exam: Mucous Membranes Moist, Normal Exam - Neck Exam Neck exam: Positive for: Normal Inspection - Respiratory Exam Respiratory Exam: Clear to Auscultation Bilateral, NORMAL BREATHING PATTERN - Cardiovascular Exam Cardiovascular Exam: REGULAR RHYTHM, RRR, +S1, +S2 - GI/Abdominal Exam GI & Abdominal Exam: Normal Bowel Sounds, Soft. absent: Tenderness - Extremities Exam Extremities exam: Positive for: full ROM, normal capillary refill, normal inspection, pedal pulses present - Back Exam Back exam: NORMAL INSPECTION - Neurological Exam Neurological exam: Alert, CN II-XII Intact, Normal Gait, Oriented x3, Reflexes Normal - Psychiatric Exam Psychiatric exam: Normal Affect, Normal Mood - Skin Skin Exam: Dry, Intact, Normal Color, Warm Results - Vital Signs Recent Vital Signs: Last Vital Signs Temp 98 F 03/23/18 06:05 Pulse 72 03/23/18 06:05 Resp 16 03/23/18 06:05 BP 162/69 H 03/23/18 06:05 Pulse Ox 100 03/23/18 03:16 - Labs Result Diagrams: 03/23/18 07:08 03/22/18 18:57 Labs: Laboratory Results - last 24 hr 03/22/18 03/22/18 03/22/18 18:36 18:57 18:57 WBC 6.1 RBC 2.91 L Hgb 5.8 L* D Hct 20.1 L MCV 69.0 L D MCH 19.8 L MCHC 28.8 L RDW 21.2 H Plt Count 382 D MPV 8.5 Neut % (Auto) 60.2 Lymph % (Auto) 19.8 L [place] % (Auto) 15.2 H Eos % (Auto) 4.2 H Baso % (Auto) 0.6 Neut # (Auto) 3.7 Lymph # (Auto) 1.2 [place] # (Auto) 0.9 H Eos # (Auto) 0.3 Baso # (Auto) 0.0 PT INR APTT Sodium Potassium Chloride Carbon Dioxide Anion Gap BUN Creatinine Est GFR ( Amer) Est GFR (Non-Af Amer) POC Glucose (mg/dL) 117 H Random Glucose Calcium Total Bilirubin AST ALT Alkaline Phosphatase Total Protein Albumin Globulin Albumin/Globulin Ratio Blood Type A POSITIVE Antibody Screen Negative Crossmatch See Detail BBK History Checked Patient has bt 03/22/18 03/22/18 03/23/18 18:57 19:50 07:08 WBC 7.2 RBC 3.51 L Hgb 7.9 L D Hct 25.3 L MCV 71.9 L D MCH 22.5 L MCHC 31.3 L RDW 23.0 H Plt Count 353 MPV Neut % (Auto) Lymph % (Auto) [place] % (Auto) Eos % (Auto) Baso % (Auto) Neut # (Auto) Lymph # (Auto) [place] # (Auto) Eos # (Auto) Baso # (Auto) PT 12.8 INR 1.1 APTT 34.5 Sodium 140 Potassium 4.9 Chloride 108 H Carbon Dioxide 22 Anion Gap 15 BUN 54 H Creatinine 2.2 H Est GFR ( Amer) 34 Est GFR (Non-Af Amer) 28 POC Glucose (mg/dL) Random Glucose 113 H Calcium 8.4 Total Bilirubin 0.2 AST 62 H D ALT 36 Alkaline Phosphatase 207 H D Total Protein 7.2 Albumin 3.6 Globulin 3.6 Albumin/Globulin Ratio 1.0 Blood Type Antibody Screen Crossmatch BBK History Checked Assessment & Plan (1) Acute pure red cell anemia Assessment and Plan: s/p 2 units prbc hgb back to baseline dc Status: Acute (2) CKD (chronic kidney disease) Assessment and Plan: stage 3 monitor Status: Acute (3) DVT prophylaxis Assessment and Plan: scd and ae hose Status: Acute Decision To Admit - Pt Status Changed To: Hospital Disposition Of: Observation - . Bed Request Type: Med/Surg Admitting Physician: [facility] Angel
[2018-03-23 08:53] VITALS: RESP 19; O2SAT 98
[2018-03-23] MEDS ORDERED: EPOETIN ALFA 2000 UNIT/ML IV SCH (09:00)
[2018-03-23 09:46] VITALS: BP 128/78; PULSE 78; TEMP 97.6
== END 2018-03-23 09:46 ==
LOC: H.ER 17:37 → H.ERHOLD 20:05
PROVIDERS: ADMIT Family Medicine; ATTEND Family Medicine
DX: D63.8 Anemia in other chronic diseases classified elsewhere (principal); I12.9 Hypertensive chronic kidney disease with stage 1 through stage 4 chronic kidney disease, or unspecified chronic kidney disease; N18.3 Chronic kidney disease, stage 3 (moderate); F03.90 Unspecified dementia, unspecified severity, without behavioral disturbance, psychotic disturbance, mood disturbance, and anxiety; I69.398 Other sequelae of cerebral infarction; E78.00 Pure hypercholesterolemia, unspecified; Z66 Do not resuscitate; Z79.82 Long term (current) use of aspirin
CPT/HCPCS: 36430; 80053; 82948; 85025; 85027; 85610; 85730; 86850; 86900; 86920; 99282; G0378; P9051

== ENCOUNTER 2018-04-12 20:58 | Inpatient (IN) | payer MEDICARE, OTHER ==
[2018-04-12 20:58] VITALS: BMI 25.2
--- NOTE | 2018-04-12 21:59 | ED PDOC ---
HPI: General Adult Time Seen by Provider: 04/12/18 21:13 Chief Complaint (Nursing): Abnormal Labs Chief Complaint (Provider): Abnormal Labs History Per: Patient History/Exam Limitations: no limitations Onset/Duration Of Symptoms: Hrs Current Symptoms Are (Timing): Still Present Additional Complaint(s): 87 y/o male with a PMHx of chronic anemia, CHF and HTN sent from [facility] for evaluation of anemia. Patient was found to have a hemoglobin of 5.7 at [facility] and was sent here for a transfusion. [facility] notes patient's states of DNI/DNR/DNH. PMD currently requesting to only have transfusion. Patient is currently getting comfort measures at longterm. Patient reports of feeling tired. When asked about leg swelling, patient states swelling is chronic. Otherwise, patient denies chest pain and shortness of breath. PMD: none provided Past Medical History Reviewed: Historical Data, Nursing Documentation, Vital Signs Vital Signs: Last Vital Signs Temp 98.5 F 04/12/18 21:00 Pulse 74 04/12/18 21:00 Resp 20 04/12/18 21:00 BP 183/71 H 04/12/18 21:00 Pulse Ox 100 04/12/18 21:00 - Medical History PMH: Anemia, Arthritis, CVA (with R deficits), Dementia, HTN, Hypercholesterol emia, TIA Denies: HIV, Chronic Kidney Disease - Surgical History Surgical History: Cholecystectomy - Family History Family History: States: Unknown Family Hx - Home Medications Home Medications: Ambulatory Orders Medication Instructions Recorded RX: Carvedilol [Coreg] 6.25 mg PO DAILY 04/09/17 RX: Mirtazapine [Remeron] 7.5 mg PO HS 07/13/17 RX: Tamsulosin [Flomax] 0.4 mg PO DAILY 07/13/17 RX: Acetaminophen [Tylenol] 650 mg PO Q4 PRN 03/22/18 RX: Acetaminophen [Tylenol] 650 mg PO Q4 PRN 03/22/18 RX: Aspirin [[place]dy Aspirin] 81 mg PO DAILY 03/22/18 RX: Epoetin Inocente [Epogen] 2,000 unit IM MWF 03/22/18 RX: Famotidine [Pepcid] 20 mg PO DAILY 03/22/18 RX: Furosemide [Lasix] 20 mg PO DAILY 03/22/18 RX: Vitamin A & D [Vitamin A & D 1 appful TOP QSHIFT 03/22/18 Oint UD Foilpak] RX: traMADol [Ultram] 25 mg PO HS 03/22/18 - Allergies Allergies/Adverse Reactions: Allergies Allergy/AdvReac Type Severity Reaction Status Date / Time No Known Allergies Allergy Verified 07/13/17 10:16 Review of Systems ROS Statement: Except As Marked, All Systems Reviewed And Found Negative (as per HPI) Constitutional: Positive for: Other (anemia) Cardiovascular: Negative for: Chest Pain Respiratory: Negative for: Shortness of Breath Physical Exam - Reviewed Nursing Documentation Reviewed: Yes Vital Signs Reviewed: Yes - Physical Exam Appears: Positive for: No Acute Distress Head Exam: Positive for: ATRAUMATIC, NORMOCEPHALIC Skin: Positive for: Pallor Eye Exam: Positive for: EOMI, PERRL ENT: Negative for: Pharyngeal Erythema, Tonsillar Exudate Neck: Positive for: Painless ROM, Supple Cardiovascular/Chest: Positive for: Regular Rate, Rhythm. Negative for: Murmur Respiratory: Positive for: Rales (minimal rales at the bases of the bilateral lung.). Negative for: Respiratory Distress Gastrointestinal/Abdominal: Positive for: Soft. Negative for: Tenderness Back: Positive for: Normal Inspection. Negative for: Muscle Spasm Extremity: Positive for: Pedal Edema (2+bilateral lower leg edema) Lymphatic: Negative for: Adenopathy Neurologic/Psych: Positive for: Alert. Negative for: Motor/Sensory Deficits - Laboratory Results Result Diagrams: 04/12/18 22:08 04/12/18 22:08 - ECG O2 Sat by Pulse Oximetry: 100 (RA) Pulse Ox Interpretation: Normal Medical Decision Making Medical Decision Making: Time: 2146 Impression: Anemia Plan: -- Packed Cells Leukoreduced -- Type and Screen -- Type and Screen -- BMP -- CBC with Differentials -- PTT -- Prothrombin Time -- Lasiz 20 mg IVP -- Transfuse Blood -- Human Resources Hr Generalist -- IV Insertion -- Pt has DNR/DNI/DNH paperwork. Will anticipate transfer back to [facility] after transfusion. -- Pt has signs of excess fluid but sent for transfusion. Concern for worsening fluid overload if given prbcs. -- TERE Wang for [place] who talked to Dr Izaguirre, pt's PMD. Advises tere Tapia Hem/Onc -- Discussed with Dr. Tapia who recommends 20 mg IV with each unit of packed RBCs 1045p Pt's family in ER. Granddaughter reports after speaking to , pt's DNH is retracted. Pt to be admitted. Dr Wang made aware. Scribe Attestation: Documented by Gisel Espana, acting as a scribe for Savanah Lezama MD. Provider Scribe Attestation: All medical record entries made by the Scribe were at my direction and personally dictated by me. I have reviewed the chart and agree that the record accurately reflects my personal performance of the history, physical exam, med ica decision making, and the department course for this patient. I have also personally directed, reviewed, and agree with the discharge instructions and disposition. Disposition - Clinical Impression Clinical Impression: Anemia Counseled Patient/Family Regarding: Studies Performed, Diagnosis - Disposition Disposition Time: 23:00 Condition: FAIR Forms: [facility] [employer] ([place] Rican) - Pt Status Changed To: Hospital Disposition Of: Observation - POA Present On Arrival: None
[2018-04-12 23:12] LABS: BASO % 0.3 % (0.0-2.0); EOS # 0.2 K/uL (0.0-0.7); LYMPH # 1.6 K/uL (1.0-4.3); LYMPH % 20.2 % (20.0-40.0); MEAN CELL VOLUME 71.1 fl (80.0-94.0); MEAN CORPUSCULAR HEMOGLOBIN 21.2 pg (27.0-31.0); MEAN CORPUSCULAR HGB CONC 29.8 g/dL (33.0-37.0); MEAN PLATELET VOLUME 8.4 fl (7.2-11.7); MONO # 0.9 K/uL (0.0-0.8); MONO % 11.7 % (0.0-10.0); NEUT % 64.8 % (50.0-75.0); NRBC % 0.2 % (0.0-0.0); RBC 2.5 Mil/uL (4.40-5.90); RED CELL DISTRIBUTION WIDTH 23.5 % (11.5-14.5); WHITE BLOOD COUNT 7.7 K/uL (4.8-10.8)
[2018-04-12 23:17] LABS: HEMOGLOBIN 5.3 g/dL (12.0-18.0)
[2018-04-12 23:19] LABS: CALCIUM 8.5 mg/dL (8.4-10.2)
[2018-04-12 23:36] LABS: INR 1.1; PROTHROMBIN TIME 12.8 Seconds (9.8-13.1)
[2018-04-12 23:39] LABS: PARTIAL THROMBOPLASTIN TIME 35.5 Seconds (25.6-37.1)
[2018-04-13] MEDS ORDERED: Vitamins A & D Oint UD Foilpak TOP SCH (06:15)
--- NOTE | 2018-04-13 08:19 | CP.PCM.HP ---
History of Present Illness - History of Present Illness History of Present Illness: pt admitted for acute on chronic anemia. no f/c, n/v/d. has some dizziness but is comfortable at present. pt resides in [facility], d dr love, heme/onc dr joseph bw and imaging noted. pt had 1 unit prbc already for 2nd and then repeat cbc Present on Admission - Present on Admission Any Indicators Present on Admission: No Review of Systems - Neurological Neurological: As Per HPI, Dizziness Past Patient History - Past Medical History & Family History Past Medical History?: Yes - Past Social History Smoking Status: Never Smoked - CARDIAC Hx Cardiac Disorders: Yes Hx Hypertension: Yes - PULMONARY Hx Respiratory Disorders: No - NEUROLOGICAL Hx Neurological Disorder: Yes HX Cerebrovascular Accident: Yes Hx Dementia: Yes Hx Transient Ischemic Attacks (TIA): Yes - HEENT Hx HEENT Problems: No - RENAL Hx Chronic Kidney Disease: No - ENDOCRINE/METABOLIC Hx Endocrine Disorders: No - HEMATOLOGICAL/ONCOLOGICAL Hx Blood Disorders: Yes Hx Anemia: Yes Hx Blood Transfusions: Yes Hx Human Immunodeficiency Virus (HIV): No - INTEGUMENTARY Hx Dermatological Problems: No - MUSCULOSKELETAL/RHEUMATOLOGICAL Hx Musculoskeletal Disorders: Yes Hx Arthritis: Yes Hx Falls: No - GASTROINTESTINAL Hx Gastrointestinal Disorders: Yes Other/Comment: Upper GI bleed - GENITOURINARY/GYNECOLOGICAL Hx Genitourinary Disorders: Yes Hx Prostate Problems: Yes (enlargement) - PSYCHIATRIC Hx Psychophysiologic Disorder: Yes Hx Depression: Yes Hx Substance Use: No - SURGICAL HISTORY Hx Surgeries: Yes Hx Cholecystectomy: Yes - ANESTHESIA Hx Anesthesia: Yes Hx Anesthesia Reactions: No Hx Malignant Hyperthermia: No Has any member of the family had a problem w/ anesthesia?: No Meds Allergies/Adverse Reactions: Allergies Allergy/AdvReac Type Severity Reaction Status Date / Time No Known Allergies Allergy Verified 07/13/17 10:16 Physical Exam - Constitutional Appears: Well, Non-toxic, No Acute Distress - Head Exam Head Exam: ATRAUMATIC, NORMAL INSPECTION, NORMOCEPHALIC - Eye Exam Eye Exam: EOMI, Normal appearance, PERRL Pupil Exam: NORMAL ACCOMODATION, PERRL - ENT Exam ENT Exam: Mucous Membranes Moist, Normal Exam - Neck Exam Neck exam: Positive for: Normal Inspection - Respiratory Exam Respiratory Exam: Clear to Auscultation Bilateral, NORMAL BREATHING PATTERN - Cardiovascular Exam Cardiovascular Exam: REGULAR RHYTHM, RRR, +S1, +S2 - GI/Abdominal Exam GI & Abdominal Exam: Normal Bowel Sounds, Soft. absent: Tenderness - Extremities Exam Extremities exam: Positive for: full ROM, normal capillary refill, normal inspection, pedal pulses present - Back Exam Back exam: NORMAL INSPECTION - Neurological Exam Neurological exam: Abnormal Gait, Alert, CN II-XII Intact, Oriented x3, Reflexes Normal - Psychiatric Exam Psychiatric exam: Normal Affect, Normal Mood - Skin Skin Exam: Dry, Intact, Normal Color, Warm Results - Vital Signs Recent Vital Signs: Last Vital Signs Temp 98.2 F 04/13/18 08:13 Pulse 69 04/13/18 08:13 Resp 20 04/13/18 08:13 BP 187/49 H 04/13/18 08:13 Pulse Ox 98 04/13/18 08:13 - Labs Result Diagrams: 04/12/18 22:08 04/12/18 22:08 Labs: Laboratory Results - last 24 hr 04/12/18 04/12/18 04/12/18 22:08 22:08 22:08 WBC 7.7 RBC 2.50 L Hgb 5.3 L* D Hct 17.8 L MCV 71.1 L MCH 21.2 L MCHC 29.8 L RDW 23.5 H Plt Count 378 MPV 8.4 Neut % (Auto) 64.8 Lymph % (Auto) 20.2 [place] % (Auto) 11.7 H Eos % (Auto) 3.0 Baso % (Auto) 0.3 Neut # (Auto) 5.0 Lymph # (Auto) 1.6 [place] # (Auto) 0.9 H Eos # (Auto) 0.2 Baso # (Auto) 0.0 PT 12.8 INR 1.1 APTT 35.5 Sodium 138 Potassium 5.4 H Chloride 104 Carbon Dioxide 25 Anion Gap 14 BUN 56 H Creatinine 2.0 H Est GFR ( Amer) 38 Est GFR (Non-Af Amer) 32 Random Glucose 97 Calcium 8.5 Blood Type Antibody Screen Crossmatch BBK History Checked 04/12/18 22:08 WBC RBC Hgb Hct MCV MCH MCHC RDW Plt Count MPV Neut % (Auto) Lymph % (Auto) [place] % (Auto) Eos % (Auto) Baso % (Auto) Neut # (Auto) Lymph # (Auto) [place] # (Auto) Eos # (Auto) Baso # (Auto) PT INR APTT Sodium Potassium Chloride Carbon Dioxide Anion Gap BUN Creatinine Est GFR ( Amer) Est GFR (Non-Af Amer) Random Glucose Calcium Blood Type A POSITIVE Antibody Screen Negative Crossmatch See Detail BBK History Checked Patient has bt Assessment & Plan (1) Acute pure red cell anemia Assessment and Plan: heme/onc 2 units prbc repeat bw dc back to NH once hgb elevates Status: Acute (2) CKD (chronic kidney disease) Assessment and Plan: contcurrent home meds and tx plan Status: Acute (3) DVT prophylaxis Assessment and Plan: scd and ae hose hold anticoag r/t anemia Status: Acute Decision To Admit - Pt Status Changed To: Hospital Disposition Of: Inpatient - Admit Certification Admit to Inpatient:: After my assessment, the patient will require h ospitalization for at least two midnights. This is because of the severity of symptoms shown, intensity of services needed, and/or the medical risk in this patient being treated as an outpatient. - . Bed Request Type: Telemetry Admitting Physician: Emerson Angel
[2018-04-13] MEDS ORDERED: Acetaminophen 325 MG/10.15 ML PO PRN (08:20)
--- NOTE | 2018-04-13 08:33 | RAD ---
Date of service: 04/12/2018 HISTORY: ANEMIA COMPARISON: 07/13/2017 FINDINGS: LUNGS: No interval pulmonary pathology appreciated. Biapical pleural thickening suspect. Left medial lung base coalescent thread-like fibrosis and/or discoid atelectasis-similar. Slight asymmetrical elevation the right hemidiaphragm-probably exaggerated with difference in inspiration. PLEURA: No significant pleural effusion identified, no pneumothorax apparent. CARDIOVASCULAR: There is presence of aortic atherosclerotic calcification on x-ray. Mild cardiomegaly-similar No significant appearing pulmonary venous congestion. OSSEOUS STRUCTURES: Thoracic spondylosis. Bilateral shoulder arthrosis. VISUALIZED UPPER ABDOMEN: Normal. OTHER FINDINGS: None. IMPRESSION: No active disease. No interval pathology noted. Other findings as above.
[2018-04-13] MEDS ORDERED: Epoetin Alfa 20000 UNIT/ML Inj IV SCH (09:00)
[2018-04-13 14:37] LABS: CALCIUM 8.4 mg/dL (8.4-10.2)
[2018-04-13 15:08] LABS: BASO % 0.4 % (0.0-2.0); EOS # 0.3 K/uL (0.0-0.7); EOS % 3.3 % (0.0-4.0); HEMOGLOBIN 7.4 g/dL (12.0-18.0); LYMPH # 1.5 K/uL (1.0-4.3); LYMPH % 19.2 % (20.0-40.0); MEAN CELL VOLUME 73.4 fl (80.0-94.0); MEAN CORPUSCULAR HGB CONC 31.3 g/dL (33.0-37.0); MEAN PLATELET VOLUME 8.1 fl (7.2-11.7); MONO # 1.1 K/uL (0.0-0.8); MONO % 13.4 % (0.0-10.0); NEUT # 5.1 K/uL (1.8-7.0); NEUT % 63.7 % (50.0-75.0); NRBC % 0.2 % (0.0-0.0); RBC 3.23 Mil/uL (4.40-5.90); RED CELL DISTRIBUTION WIDTH 23.5 % (11.5-14.5); WHITE BLOOD COUNT 7.9 K/uL (4.8-10.8)
[2018-04-13 19:53] VITALS: O2SAT 97
--- NOTE | 2018-04-14 07:51 | CARD ---
APPROVED REPORT Date of service: 04/12/2018 EKG Measurement Heart [id number] <Conclusion> Sinus rhythm with 1st degree AV block with premature atrial complexes Left ventricular hypertrophy with repolarization abnormality Abnormal ECG
--- NOTE | 2018-04-14 08:30 | CP.PCM.PN ---
Subjective - Date & Time of Evaluation Date of Evaluation: 04/14/18 Time of Evaluation: 08:30 - Subjective Subjective: pt doign wel. w/o compliants. apears at baseline. no f/c, n/v/d. no dyspnea. am cbc pending. rec'd units of prbc 3 and 4 overnight. case d/c w/ dr joseph Objective - Vital Signs/Intake and Output Vital Signs (last 24 hours): Temp Pulse Resp BP Pulse Ox 97.9 F 62 16 162/58 H 97 04/14/18 06:05 04/14/18 06:05 04/14/18 06:05 04/14/18 06:05 04/13/18 19:52 Intake and Output: 04/14/18 04/14/18 06:59 18:59 Intake Total 1500 Output Total 1200 Balance 300 - Medications Medications: Current Medications Acetaminophen (Tylenol 325mg Tab) 650 mg PO Q4 PRN PRN Reason: Fever >100.4 F Acetaminophen (Tylenol 325mg/10.15ml Ud) 325 mg PO Q4 PRN PRN Reason: Pain, Mild (1-3) Acetaminophen (Tylenol 325mg Tab) 650 mg PO Q4 PRN PRN Reason: Pain, moderate (4-7) Last Admin: 04/13/18 16:43 Dose: 650 mg Aspirin (Aspirin Chewable) 81 mg PO DAILY [facility] Last Admin: 04/13/18 08:56 Dose: 81 mg Carvedilol (Coreg) 6.25 mg PO DAILY [facility] Last Admin: 04/13/18 08:56 Dose: 6.25 mg Epoetin Inocente (Procrit) 2,000 unit IV MWF [facility] Last Admin: 04/13/18 18:58 Dose: 2,000 unit Famotidine (Pepcid) 20 mg PO DAILY [facility] Last Admin: 04/13/18 08:56 Dose: 20 mg Furosemide (Lasix) 20 mg IVP ONCE [facility] Last Admin: 04/14/18 05:10 Dose: 20 mg Furosemide (Lasix) 20 mg PO DAILY [facility] Last Admin: 04/13/18 08:56 Dose: 20 mg Furosemide (Lasix) 20 mg IVP ONCE ONE Stop: 04/14/18 15:46 Mirtazapine (Remeron) 7.5 mg PO HS [facility] Last Admin: 04/13/18 22:00 Dose: 7.5 mg Tamsulosin HCl (Flomax) 0.4 mg PO DAILY [facility] Last Admin: 04/13/18 08:56 Dose: 0.4 mg Tramadol HCl (Ultram) 25 mg PO HS PRN PRN Reason: Pain, severe (8-10) Vitamin A (Vitamin A & D Oint Ud Foilpak) 1 ea TOP QSHIFT [facility] Last Admin: 04/13/18 08:59 Dose: 1 ea - Labs Labs: 04/13/18 14:16 04/13/18 14:16 PT 12.8 Seconds (9.8-13.1) 04/12/18 22:08 INR 1.1 04/12/18 22:08 APTT 35.5 Seconds (25.6-37.1) 04/12/18 22:08 - Constitutional Appears: Well, Non-toxic, No Acute Distress - Head Exam Head Exam: ATRAUMATIC, NORMAL INSPECTION, NORMOCEPHALIC - Eye Exam Eye Exam: EOMI, Normal appearance, PERRL Pupil Exam: NORMAL ACCOMODATION, PERRL - ENT Exam ENT Exam: Mucous Membranes Moist, Normal Exam - Neck Exam Neck Exam: Full ROM, Normal Inspection. absent: Lymphadenopathy - Respiratory Exam Respiratory Exam: Clear to Ausculation Bilateral, NORMAL BREATHING PATTERN - Cardiovascular Exam Cardiovascular Exam: REGULAR RHYTHM, RRR, +S1, +S2. absent: Murmur - GI/Abdominal Exam GI & Abdominal Exam: Soft, Normal Bowel Sounds. absent: Tenderness - Extremities Exam Extremities Exam: Full ROM, Normal Capillary Refill, Normal Inspection. absent: Joint Swelling, Pedal Edema - Back Exam Back Exam: NORMAL INSPECTION - Neurological Exam Neurological Exam: Abnormal Gait, Alert, Awake, CN II-XII Intact - Psychiatric Exam Psychiatric exam: Normal Affect, Normal Mood - Skin Skin Exam: Dry, Intact, Normal Color, Warm Assessment and Plan (1) Acute pure red cell anemia Status: Acute (2) CKD (chronic kidney disease) Status: Acute (3) DVT prophylaxis Status: Acute - Assessment and Plan (Free Text) Assessment: (1) Acute pure red cell anemia Assessment and Plan: heme/onc 4 units total prbc repeat bw at 9a dc back to NH once hgb elevates and heme/onc clears Status: Acute (2) CKD (chronic kidney disease) Assessment and Plan: contcurrent home meds and tx plan Status: Acute (3) DVT prophylaxis Assessment and Plan: scd and ae hose hold anticoag r/t anemia Status: Acute
[2018-04-14 08:36] LABS: HEMOGLOBIN 10.7 g/dL (12.0-18.0); MEAN CELL VOLUME 76.6 fl (80.0-94.0); MEAN CORPUSCULAR HEMOGLOBIN 24.6 pg (27.0-31.0); MEAN CORPUSCULAR HGB CONC 32.1 g/dL (33.0-37.0); RBC 4.34 Mil/uL (4.40-5.90); RED CELL DISTRIBUTION WIDTH 24.2 % (11.5-14.5); WHITE BLOOD COUNT 10.1 K/uL (4.8-10.8)
--- NOTE | 2018-04-14 09:50 | PQF ---
PROVIDER RESPONSE TEXT: Ckd stage 3 REVIEWER QUERY TEXT: Kidney Disease, Chronic CKD Stage Chronic Kidney Disease (CKD) is documented in the Medical Record. Please specify the disease stage: Such as: -- Chronic kidney disease Stage 1 -- Chronic kidney disease Stage 2 -- Chronic kidney disease Stage 3 -- Chronic kidney disease Stage 4 -- Chronic kidney disease Stage 5 -- Chronic kidney disease Stage 5, requiring dialysis -- End Stage Renal Disease -- Other, please specify Creatinine: 2.0->1.8 Est GFR ( Amer): 38->43 Est GFR (Non- Af Amer); 32->36 Stages are defined by the National Kidney Foundation as follows: CKD Stage I GFR >= 90 ml / min per 1.73 m2 and persistent albuminuria CKD Stage 2 GFR between 60 and 89 with persistent albuminuria CKD Stage 3 GFR between 30 and 59 CKD Stage 4 GFR between 15 and 29 CKD Stage 5 GFR between <15 or End Stage Renal Disease The patient's Clinical Indicators include: ---- Query created by: Adri Christina on 04/14/2018 9:38 AM Electronically signed by: Yasmany Wang APN 04/14/2018 9:47 AM
--- NOTE | 2018-04-14 11:32 | CP.PCM.CON ---
Past Patient History - Past Medical History & Family History Past Medical History?: Yes - Past Social History Smoking Status: Never Smoked - CARDIAC Hx Cardiac Disorders: Yes Hx Hypertension: Yes - PULMONARY Hx Respiratory Disorders: No - NEUROLOGICAL Hx Neurological Disorder: Yes HX Cerebrovascular Accident: Yes Hx Dementia: Yes Hx Transient Ischemic Attacks (TIA): Yes - HEENT Hx HEENT Problems: No - RENAL Hx Chronic Kidney Disease: No - ENDOCRINE/METABOLIC Hx Endocrine Disorders: No - HEMATOLOGICAL/ONCOLOGICAL Hx Blood Disorders: Yes Hx Anemia: Yes Hx Blood Transfusions: Yes Hx Human Immunodeficiency Virus (HIV): No - INTEGUMENTARY Hx Dermatological Problems: No - MUSCULOSKELETAL/RHEUMATOLOGICAL Hx Musculoskeletal Disorders: Yes Hx Arthritis: Yes Hx Falls: No - GASTROINTESTINAL Hx Gastrointestinal Disorders: Yes Other/Comment: Upper GI bleed - GENITOURINARY/GYNECOLOGICAL Hx Genitourinary Disorders: Yes Hx Prostate Problems: Yes (enlargement) - PSYCHIATRIC Hx Psychophysiologic Disorder: Yes Hx Depression: Yes Hx Substance Use: No - SURGICAL HISTORY Hx Surgeries: Yes Hx Cholecystectomy: Yes - ANESTHESIA Hx Anesthesia: Yes Hx Anesthesia Reactions: No Hx Malignant Hyperthermia: No Has any member of the family had a problem w/ anesthesia?: No Meds Allergies/Adverse Reactions: Allergies Allergy/AdvReac Type Severity Reaction Status Date / Time No Known Allergies Allergy Verified 07/13/17 10:16 - Medications Medications: Current Medications Acetaminophen (Tylenol 325mg Tab) 650 mg PO Q4 PRN PRN Reason: Fever >100.4 F Acetaminophen (Tylenol 325mg/10.15ml Ud) 325 mg PO Q4 PRN PRN Reason: Pain, Mild (1-3) Acetaminophen (Tylenol 325mg Tab) 650 mg PO Q4 PRN PRN Reason: Pain, moderate (4-7) Last Admin: 04/14/18 10:08 Dose: 650 mg Aspirin (Aspirin Chewable) 81 mg PO DAILY [facility] Last Admin: 04/14/18 09:59 Dose: 81 mg Carvedilol (Coreg) 6.25 mg PO DAILY [facility] Last Admin: 04/14/18 09:59 Dose: 6.25 mg Epoetin Inocente (Procrit) 2,000 unit IV MWF [facility] Last Admin: 04/13/18 18:58 Dose: 2,000 unit Famotidine (Pepcid) 20 mg PO DAILY [facility] Last Admin: 04/14/18 10:00 Dose: 20 mg Furosemide (Lasix) 20 mg IVP ONCE [facility] Last Admin: 04/14/18 05:10 Dose: 20 mg Furosemide (Lasix) 20 mg PO DAILY [facility] Last Admin: 04/14/18 10:00 Dose: 20 mg Furosemide (Lasix) 20 mg IVP ONCE ONE Stop: 04/14/18 15:46 Mirtazapine (Remeron) 7.5 mg PO HS [facility] Last Admin: 04/13/18 22:00 Dose: 7.5 mg Tamsulosin HCl (Flomax) 0.4 mg PO DAILY [facility] Last Admin: 04/14/18 10:00 Dose: 0.4 mg Tramadol HCl (Ultram) 25 mg PO HS PRN PRN Reason: Pain, severe (8-10) Vitamin A (Vitamin A & D Oint Ud Foilpak) 1 ea TOP QSHIFT [facility] Last Admin: 04/13/18 08:59 Dose: 1 ea Results - Vital Signs Recent Vital Signs: Last Vital Signs Temp 98.0 F 04/14/18 08:00 Pulse 96 H 04/14/18 09:59 Resp 18 04/14/18 08:00 BP 199/66 H 04/14/18 10:00 Pulse Ox 96 04/14/18 08:00 - Labs Result Diagrams: 04/14/18 08:28 04/13/18 14:16 Labs: Laboratory Results - last 24 hr 04/12/18 04/13/18 04/13/18 22:08 14:16 14:16 WBC 7.9 RBC 3.23 L Hgb 7.4 L D Hct 23.7 L MCV 73.4 L D MCH 23.0 L MCHC 31.3 L RDW 23.5 H Plt Count 359 MPV 8.1 Neut % (Auto) 63.7 Lymph % (Auto) 19.2 L [place] % (Auto) 13.4 H Eos % (Auto) 3.3 Baso % (Auto) 0.4 Neut # (Auto) 5.1 Lymph # (Auto) 1.5 [place] # (Auto) 1.1 H Eos # (Auto) 0.3 Baso # (Auto) 0.0 Sodium 137 Potassium 4.6 Chloride 102 Carbon Dioxide 25 Anion Gap 15 BUN 50 H Creatinine 1.8 H Est GFR ( Amer) 43 Est GFR (Non-Af Amer) 36 Random Glucose 123 H Calcium 8.4 Blood Type A POSITIVE Antibody Screen Negative Crossmatch See Detail BBK History Checked Patient has bt 04/14/18 08:28 WBC 10.1 RBC 4.34 L Hgb 10.7 L D Hct 33.2 L MCV 76.6 L D MCH 24.6 L MCHC 32.1 L RDW 24.2 H Plt Count 406 H MPV Neut % (Auto) Lymph % (Auto) [place] % (Auto) Eos % (Auto) Baso % (Auto) Neut # (Auto) Lymph # (Auto) [place] # (Auto) Eos # (Auto) Baso # (Auto) Sodium Potassium Chloride Carbon Dioxide Anion Gap BUN Creatinine Est GFR ( Amer) Est GFR (Non-Af Amer) Random Glucose Calcium Blood Type Antibody Screen Crossmatch BBK History Checked
--- NOTE | 2018-04-14 12:21 | PQF ---
PROVIDER RESPONSE TEXT: H/o cva, appears at baseline REVIEWER QUERY TEXT: Clarification of Clinical Diagnostic Findings Please clarify if there are any additional dxs. to go along with the following chart documentation ER;PMH: includes; CVA (with R deficits) Nursing Admission Assessment: Physical; Muscle Strength: Lt upper and lower extremity: (5/5) Rt upper and lower extremity (/5)-------i.e. 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 OR; Disagree OR:Other explanation of clinical findings The patient's Clinical Indicators include: --- Query created by: Adri Christina on 04/14/2018 10:03 AM Electronically signed by: Yasmany Wagn APN 04/14/2018 12:18 PM
--- NOTE | 2018-04-14 12:21 | PQF ---
PROVIDER RESPONSE TEXT: Agree w/ nursing documentations REVIEWER QUERY TEXT: Pressure Ulcer Type Pressure ulcer is documented in the Medical Record. Please specify the location, present on admission status and/or stage:Location and laterality of pressure ulcer(s): POA status of each pressure ulcer: -- Not present on admission -- Present on admission -- Other -- Clinically unable to determine -- Unknown 04/13 Admission Assessment Nursing: Pressure Ulcer POA: No 04/13@19:04: Nursing Pressure Ulcer Assessent: left buttocks: partial thickness loss of dermis presenti ng as a shallow open ulcer Wound RN consult ordered: reason for exam: left buttock with open sore -Wound consult pending Stage of each pressure ulcer (National Pressure Ulcer Advisory Panel definitions): -- Stage I: Intact skin with non-blanchable redness of a localized area -- Stage II: Partial thickness skin loss involving dermis with a shallow open ulcer or an open serum -filled blister -- Stage III: Full thickness skin loss involving damage or necrosis of subcutaneous tissue -- Stage IV: Full thickness skin loss with exposed bone, tendon or muscle -- Unstageable: Full thickness tissue loss in which the base of the ulcer is covered by slough and/o r eschar in the wound bed The patient's Clinical Indicators include: -- Query created by: Adri Christina on 04/14/2018 10:16 AM Electronically signed by: Yasmany Wang APN 04/14/2018 12:18 PM
[2018-04-14 12:43] VITALS: BP 168/63; PULSE 67; RESP 20; TEMP 97.3
--- NOTE | 2018-04-14 14:15 | CP.PCM.DIS ---
Provider - Provider Date of Admission: 04/12/18 23:14 Attending physician: Emerson Angel MD Consults: 04/13/18 19:20 Wound Care [Nursing Referral for Wound Care] Routine Comment: Physician Instructions: Reason For Exam: left buttock w/ open sore. 04/14/18 04:36 Case Management Referral Routine Comment: Physician Instructions: Reason For Exam: pt from [facility] Reason for Referral: Discharge Planning 04/14/18 11:21 Hematology Oncology Consult Routine Comment: Consulting Provider: Julien Tapia Consulting Physician: Julien Tapia Reason for Consult: anemia Time Spent in preparation of Discharge (in minutes): 15 Diagnosis - Discharge Diagnosis (1) Acute pure red cell anemia Status: Acute (2) CKD (chronic kidney disease) Status: Acute (3) DVT prophylaxis Status: Acute Hospital Course - Lab Results Lab Results: Most Recent Lab Values WBC 10.1 K/uL (4.8-10.8) 04/14/18 08:28 RBC 4.34 Mil/uL (4.40-5.90) L 04/14/18 08:28 Hgb 10.7 g/dL (12.0-18.0) L D 04/14/18 08:28 Hct 33.2 % (35.0-51.0) L 04/14/18 08:28 MCV 76.6 fl (80.0-94.0) L D 04/14/18 08:28 MCH 24.6 pg (27.0-31.0) L 04/14/18 08:28 MCHC 32.1 g/dL (33.0-37.0) L 04/14/18 08:28 RDW 24.2 % (11.5-14.5) H 04/14/18 08:28 Plt Count 406 K/uL (130-400) H 04/14/18 08:28 MPV 8.1 fl (7.2-11.7) 04/13/18 14:16 Neut % (Auto) 63.7 % (50.0-75.0) 04/13/18 14:16 Lymph % (Auto) 19.2 % (20.0-40.0) L 04/13/18 14:16 [place] % (Auto) 13.4 % (0.0-10.0) H 04/13/18 14:16 Eos % (Auto) 3.3 % (0.0-4.0) 04/13/18 14:16 Baso % (Auto) 0.4 % (0.0-2.0) 04/13/18 14:16 Neut # (Auto) 5.1 K/uL (1.8-7.0) 04/13/18 14:16 Lymph # (Auto) 1.5 K/uL (1.0-4.3) 04/13/18 14:16 [place] # (Auto) 1.1 K/uL (0.0-0.8) H 04/13/18 14:16 Eos # (Auto) 0.3 K/uL (0.0-0.7) 04/13/18 14:16 Baso # (Auto) 0.0 K/uL (0.0-0.2) 04/13/18 14:16 PT 12.8 Seconds (9.8-13.1) 04/12/18 22:08 INR 1.1 04/12/18 22:08 APTT 35.5 Seconds (25.6-37.1) 04/12/18 22:08 Sodium 137 mmol/l (132-148) 04/13/18 14:16 Potassium 4.6 MMOL/L (3.6-5.0) 04/13/18 14:16 Chloride 102 mmol/L (98-107) 04/13/18 14:16 Carbon Dioxide 25 mmol/L (22-30) 04/13/18 14:16 Anion Gap 15 (10-20) 04/13/18 14:16 BUN 50 mg/dl (9-20) H 04/13/18 14:16 Creatinine 1.8 mg/dl (0.8-1.5) H 04/13/18 14:16 Est GFR ( Amer) 43 04/13/18 14:16 Est GFR (Non-Af Amer) 36 04/13/18 14:16 Random Glucose 123 mg/dL (75-110) H 04/13/18 14:16 Calcium 8.4 mg/dL (8.4-10.2) 04/13/18 14:16 Blood Type A POSITIVE 04/12/18 22:08 Antibody Screen Negative 04/12/18 22:08 Crossmatch See Detail 04/12/18 22:08 BBK History Checked Patient has bt 04/12/18 22:08 - Hospital Course Hospital Course: 4units prbc heme/onc monitor of cbc Discharge Exam - Head Exam Head Exam: ATRAUMATIC, NORMAL INSPECTION, NORMOCEPHALIC Discharge Plan - Follow Up Plan Condition: FAIR Dis[facility] Instructions: Anemia of Chronic Disease (DC) Additional Instructions: discharge pt to [facility] final [id number] on chronic. anemia of chronic dz, ckd stage 3 cleared by heme/onc doign well. no complaints. f/u rmg in [facility] cbc 3-4 days Referrals: Julien Tapia MD [Staff Provider] - Emerson Angel MD [Staff Provider] -
== END 2018-04-14 13:30 | DRG 809 ==
LOC: H.ER 20:58 → H.ERHOLD 23:14 → H.TEL 04-13 01:06
PROVIDERS: ADMIT Family Medicine; ATTEND Family Medicine
PROC: 30233N1 Transfusion of Nonautologous Red Blood Cells into Peripheral Vein, Percutaneous Approach (ICD-10-PCS; principal; 2018-04-13)
DX: D60.8 Other acquired pure red cell aplasias (principal); I13.0 Hypertensive heart and chronic kidney disease with heart failure and stage 1 through stage 4 chronic kidney disease, or unspecified chronic kidney disease; N18.3 Chronic kidney disease, stage 3 (moderate); D63.1 Anemia in chronic kidney disease; F03.90 Unspecified dementia, unspecified severity, without behavioral disturbance, psychotic disturbance, mood disturbance, and anxiety; I50.9 Heart failure, unspecified; E78.00 Pure hypercholesterolemia, unspecified; M19.90 Unspecified osteoarthritis, unspecified site; Z66 Do not resuscitate; Z86.73 Personal history of transient ischemic attack (TIA), and cerebral infarction without residual deficits